=== PATIENT | female | born 1950 | race Caucasian/White ===

== ENCOUNTER 2023-03-24 12:45 | Outpatient (RCR) | payer OTHER, SELFPAY ==
--- NOTE | 2023-03-25 08:06 | PT.OPEX ---
[facility] [place] Outpatient Eval PT [facility] Outpatient Eval Start: 03/24/23 12:56 Freq: Status: Active Protocol: Document 03/24/23 12:57 AMS (Rec: 03/24/23 16:49 AMS [id number]) E-signed By Marcia Chan PT Physical Therapy Outpatient Evaluation Insurance Information Recert Due Date 06/17/23 Insurance Name Medicare B,[employer] Medical Diagnosis S/p left total knee replacement 04/01/23 Primary osteoarthritis of left knee Presence of left artificial knee joint Treating Diagnosis Aftercare following joint replacement Difficulty walking Left knee pain/stiffness Referring MD Manas Barrera Subjective Subjective Christy is a very pleasant 72- year-old young lady, here today with left knee pain. She states she would like a left knee replacement. She has been seeing Dr. Ponce at [address] [facility]. She had a cortisone injection 2-3 weeks ago. She has diabetes. Her problem list also states that she has MRSA. She has no recollection of this. She ambulates with a walker. She has had significant pain in the knee. Cortisone injection was not helpful. She takes Tylenol for her pain. She is on many diabetes medications including insulin. She does not recall what her most recent hemoglobin A1c was. - Bonny Neely, 12/11/22, confirmed by patient Pt reports to therapy 1 week prior to left knee replacement . She reports worsening left knee pain that started gradually 2 years ago and is localized to the whole knee. This is worse with prolonged standing, walking, squatting, etc and is very limiting for her. She ambulates at baseline with a 4WW due to back pain and gait imbalance; she is modified independent with IADLS (housekeeping comes 2x/ week). She is sedentary and does not exercise. Generally, she can stand and walk for a minute or so before her knee starts to bother her quite a bit. It is constant pain and does not relieve with rest. She has tried injections in the past, but these stopped being helpful after awhile. X- rays showed end stage tricompartmental osteoarthritis of her left knee. She is contemplating a [facility] facility stay after surgery. Please see pre- op note for full home set up. Lives on the 1st floor of an apartment complex with no stairs. Notably, she does not have anyone to assist her after surgery and does not want to ask any friends or family. She is adamant that she will not need help with anything after surgery other than her usual crnp who also does her laundry. She will be doing physical therapy at [facility] in [place] after surgery. She does not own a 2WW, but is open to using one after surgery. She does own a single point cane. Does not drive, takes a taxi everywhere. Her main goals with therapy are to return to walking longer distances with her 4WW. She denies falls in the last year, but states that is because she uses her 4WW; did have falls prior to using it and wears life alert around her neck. Pain Comments or 11/19, constant, whole knee Date of Last Physician Visit 01/20/23 Date of Surgery (If applicable) 04/01/23 Current Work Status Retired Occupation Retired nurse's aid Preferred Name Christy Precautions Treatment Precautions/Contraindications GERD (gastroesophageal reflux disease) Hypothyroid Type 2 diabetes mellitus Hypertension Elevated cholesterol Breathing problem Breast cancer hx, removed tumor in May 2022 on left side R total hip arthroplasty 2017 Depression Allergies Weight Bearing Status Weight Bear as Tolerated Therapy Limitations/Systems Review Affect,Cognition Objective Other/Pertinent Objective Knee ROM L 0-10-109 R 0-3-115 Hip ROM Did not assess this visit, poor tolerance to supine position Strength: Hip flexors: R 4/5, L 4/5 Knee extensors: R 4/5, L 4/5 Knee flexors: R 4/5 L 4/5 Gait/balance: Ambulates with 4WW, prefers positioning further away from her body, mildly antalgic on left. Balance: requires 4WW for safety with gait. Palpation/joint mobility: Mild tenderness to palpation over tibial tuberosity, medial joint line, posterior knee. Swelling/observation: No visible swelling appreciated. No bruising. Other: Bed mobility: utilizes her momentum for supine <> sit transitions, head of bed elevated on pillows per home set up. Left knee pain with transitions. Assessment Assessment/Impression Patient is a 71 year old female presenting for pre- operative visit prior to left total knee arthroplasty scheduled for 04/01/23. Upon assessment, patient demonstrates decreased knee ROM, decreased proximal hip force output, baseline gait imbalance with use of 4WW, and antalgic gait pattern. These impairments lead to difficulties with standing, walking, squatting, and transfers. She is modified independent with use of 4WW for all mobility at baseline. She does not have a caregiver lined up after surgery and is declining assistance at this time; utilizes taxi services for transport. Patient will be seen post operatively at [facility] to reassess impairments that will be addressed with skilled care. Christy would greatly benefit from skilled PT in order to progress strength, ROM, and ambulation post operatively in order to perform all household and work duties without significant difficulty or discomfort. Primary Functional Limitations standing, walking, squatting, transfers Plan of Care Rehabilitation Potential Good Physical Therapy Goals Goals: After pre-op visit: ? Patient will be independent with HEP ? Patient will verbalize knowledge of stair navigation and proper sequencing for community navigation ? Patient will have knowledge on home adaptations and use of assistive devices post operatively ? Patient will have knowledge of edema management ALL MET Coordination/Communication With Referral Source Treatment Plan/Direct Interventions Gait Training,Joint Mobilization,Manual Therapy, Neuromuscular Re-ed,Self-Care/ Home Management,Therapeutic Activities,Therapeutic Exercises Frequency/Duration 1x visit prior to surgery on . Patient scheduled to start outpatient PT s/p TKA on 04/03/23 at [facility] in [place]. Has HEP to start with pre-operatively. Patient Will Be Discharged From Therapy Completion of LTG(s), Independent w/HEP, Independently Progressing Evaluation Billing Untimed Code Treatment Minutes 15 Complexity Moderate Certification Information Initial Certification Date 03/24/23 Ending Certification Date 06/17/23 Provider Signature Shows Agreement With POC & Medical Necessity Physician Signature & Date Requested Please Sign/Date Here Physician Comment/Change : Physician NPI Number #
== END 2023-07-22 23:59 | disposition home or self-care (01) ==
PROVIDERS: PCP Family Medicine; Visit Provider Orthopaedic Surgery
DX: M17.12 Unilateral primary osteoarthritis, left knee (principal); Z96.652 Presence of left artificial knee joint; R26.2 Difficulty in walking, not elsewhere classified; M25.562 Pain in left knee; M25.662 Stiffness of left knee, not elsewhere classified; Z47.1 Aftercare following joint replacement surgery; Z51.89 Encounter for other specified aftercare
CPT/HCPCS: 97110; 97162

== ENCOUNTER 2023-04-01 07:32 | Inpatient (IN) | payer OTHER, SELFPAY ==
[2023-04-01] VITALS (25 sets, daily range): BP systolic 112–170; BP diastolic 46–99; PULSE 60–93; RESP 15–20; TEMP 35.4–36.8; O2SAT 93–98; BMI 34.6
--- OUTSIDE RECORDS SUMMARY | 2023-04-01 07:35 | XMS_ITS | Clinical Summary ---
Author Name Unknown Organization [employer] [facility] Address [place], [place] [address] Care Team Providers Care Receiving Coordinator Name Role Phone Ranjit Jennings MD Primary Care Provider [phone] Debbie Rivas RN Unavailable [phone] Cherry Schafer RN Unavailable [phone] Anel Mitchell RN Unavailable [facility] [place] Unavailable [phone] [facility] Un[facility] Alanis Fuchs MD Unavailable Beckie Stein VP PUBLISHER DEVELOPMENT Unavailable Allergies Active Allergy Reactions Criticality Noted Date Comments Cats (Fur, Dander, Saliva) Runny Nose Low 0 Cefprozil *Unknown Unknown 10/29/2007 Chlorpheniramine *Unknown Unknown 10/29/2007 Ziprasidone Seizures High 12/14/2007 Horse/Equine Containing Products *Unknown Unknown 11/06/2010 found on allergy testing Hydroxyzine *Unknown Unknown 10/29/2007 Iodine And Iodide Containing Products *Unknown Unknown 07/21/2019 Levofloxacin *Unknown Unknown 07/21/2019 Lisinopril Cough Low 04/09/2017 Wifppnjl-Eyxmbdzvhq-Rgucwtlfi *Unknown Unknown 2007 Unlisted Allergen (Include Detail In Comments) *Unknown Unknown 12/12/2010 dog Penicillins *Unknown Unknown 10/29/2007 Polymyxin B Sulfate-Hc *Unknown Unknown 07/21/2019 Sulfamethoxazole-Trimethoprim *Unknown Unknown 2009 Bupropion Seizures High 10/29/2007 Ziprasidone *Unknown Unknown 07/21/2019 Medications Medication Sig Dispensed Refills Start Date End Date Status durable medical equipment (DME)Indications:Ur inary incontinence, unspecified type Poise Pads Long Length Ultimate [place] use as directed. 100 Each 9 Active medication order composerIndications :Urinary incontinence, unspecified type Pull Up XL through Active Style use as directed. 100 Each 9 Active aspirin (ECOTRIN) 81 mg enteric coated tabletIndications:S tatus post reverse total shoulder replacement, unspecified laterality Take 1 Tablet (81 mg) by mouth once daily with a meal. 60 Tablet 0 1 Active magnesium citrate (CITRATE OF MAG)Indications:Chr onic constipation Take 300 mL by mouth once daily if needed for Constipation. 12 Bottle 3 1 Active CPAPIndications:MYRNA (obstructive sleep apnea) CPAP machine for home use at pressure 5-15 cmw, full face mask x1/3month with a full face cushion x1/mo 1 Each 11 1 Active fluticasone (50 mcg per actuation) nasal solution (FLONASE)Indication s:Allergic rhinitis, unspecified seasonality, unspecified trigger Use 2 spray(s) in each nostril once daily 48 g 3 2 Active docusate (COLACE) 100 mg capsuleIndications: S/P shoulder replacement, right Take 1 Capsule (100 mg) by mouth 2 times daily if needed for Constipation (Hold for loose stools). 100 Capsule 2 Active albuterol HFA (PRO-AIR; VENTOLIN; PROVENTIL) 90 mcg/actuation inhalerIndications: Cough, unspecified type Inhale 1-2 Puffs by mouth every 4 hours if needed (cough). 1 Each 0 3 Active albuterol (PROVENTIL) 0.083 % neb solutionIndications :COPD mixed type (HC) Inhale 3 mL (2.5 mg) via a nebulizer every 6 hours. 270 mL 3 3 Active Milk of Magnesia 400 mg/5 mL suspensionIndicatio ns:Ileus (HC) Take 30 mL by mouth once daily if needed for Constipation. 473 mL 0 3 Active aluminum-magnesium hydroxide-simethico ne (MAALOX PLUS; MYLANTA) 200-200-20 mg/5 mL suspensionIndicatio ns:Abdominal discomfort Take 15 mL by mouth 4 times daily if needed for GI Upset. 354 mL 0 3 Active Allergy Relief, cetirizine, 10 mg tabletIndications:N on-seasonal allergic rhinitis due to pollen Take 1 tablet by mouth once daily 90 Tablet 3 3 Active Blood-Glucose Meter (Pili PopTouch Ultra2 Meter)Indications:T ype 2 diabetes mellitus with stage 3b chronic kidney disease, without long-term current use of insulin (HC) Dispense glucose meter covered by the patient insurance. Test 1 times per day. 1 Each 0 3 Active blood sugar diagnostic (Blood Glucose Test) stripIndications:Ty pe 2 diabetes mellitus with stage 3b chronic kidney disease, without long-term current use of insulin (HC) Test 1 times per day. 100 Each 3 Active lancetsIndications: Type 2 diabetes mellitus with stage 3b chronic kidney disease, without long-term current use of insulin (HC) As directed. Test 1 times per day. 100 Each 3 Active ipratropium (ATROVENT) 0.02 % nebulizer solutionIndications :COPD mixed type (HC) Inhale 2.5 mL (0.5 mg) via a nebulizer 4 times daily. 900 mL 0 3 Active Insulin [place], Disposable, (Jonna Pen Needle) 32 gauge x 5/32Indications:Ty pe 2 diabetes mellitus with stage 3b chronic kidney disease, without long-term current use of insulin (HC) As directed. To use with insulin once daily 100 Each 5 3 Active dulaglutide (Trulicity) 1.5 mg/0.5 mL subcutaneous penIndications:Type 2 diabetes mellitus with stage 3b chronic kidney disease, without long-term current use of insulin (HC) Inject 1.5 mg subcutaneous once weekly. 2 mL 3 3 Active fluorometholone (FML) 0.1 % ophthalmic suspensionIndicatio ns:Conjunctival irritation,Dry eyes, bilateral One gtt qid OU x 2 weeks. Then, decrease to bid OU x 2 weeks. 4 mL 0 3 Active glyBURIDE (MICRONASE; DIABETA) 5 mg tabletIndications:T ype 2 diabetes mellitus with other specified complication, without long-term current use of insulin (HC) Take 1 Tablet (5 mg) by mouth once daily before a meal. 90 Tablet 1 3 Active fenofibrate 160 mg tabletIndications:H ypertriglyceridemia Take 1 Tablet (160 mg) by mouth once daily with a meal. 90 Tablet 1 3 Active losartan (COZAAR) 100 mg tabletIndications:H TN (hypertension) Take 1 Tablet (100 mg) by mouth once daily. 90 Tablet 1 3 Active potassium chloride (KLOR-CON) 20 mEq extended-release tablet (part/cryst)Indicat ions:Hypokalemia Take 1 Tablet (20 mEq) by mouth two times daily with meals. 180 Tablet 1 3 Active traZODone (DESYREL) 100 mg tabletIndications:I nsomnia, unspecified type Take 3 Tablets (300 mg) by mouth at bedtime. 270 Tablet 1 3 Active mirtazapine (REMERON) 15 mg tabletIndications:M oderate recurrent major depression (HC) Take 1 Tablet (15 mg) by mouth at bedtime. 30 Tablet 5 3 Active desvenlafaxine succinate (PRISTIQ) 100 mg extended release tabletIndications:M ajor depression in remission (HC) Take 1 Tablet (100 mg) by mouth every morning. 30 Tablet 5 3 Active polyethylene glycoL (MIRALAX) 17 gram/scoop powderIndications:I leus (HC) Mix 1 scoop (17 g) in liquid then take by mouth once daily. 510 g 3 3 Active Dexcom G6 Transmitter for continuous blood glucose monitor (CGM)Indications:Ty pe 2 diabetes mellitus with other specified complication, without long-term current use of insulin (HC) To be used to read blood sugars, follow credit reporter directions. 1 Each 4 3 Active mirabegron EXTENDED-release (MYRBETRIQ) 50 mg tabletIndications:O AB (overactive bladder) Take 1 Tablet (50 mg) by mouth once daily. 90 Tablet 0 3 Active artificial tears, peg 400 0.4%-propylene glycol 0.3%, (Systane, propylene glycoL,) ophthalmicIndicatio ns:Dry eye syndrome of both eyes Place 1 Drop into both eyes 4 times daily if needed for Dry Eyes. 10 mL 1 3 Active White Petrolatum-Mineral Oil (Systane Nighttime) 94-3 % ophthalmic ointmentIndications :Dry eye syndrome of both eyes Apply a small amount to the inside lower eyelids every night. 3.5 g 1 3 Active acetaminophen (acetaminophen Extra Strength) 500 mg tabletIndications:C hronic low back pain without sciatica, unspecified back pain laterality TAKE 2 TABLETS BY MOUTH THREE TIMES DAILY . DO NOT EXCEED 4000 MG OF ACETAMINOPHEN PER 24 HOURS 540 Tablet 3 3 Active ARIPiprazole (Abilify) 15 mg tabletIndications:D epression, unspecified depression type Take 1 Tablet (15 mg) by mouth once daily. 30 Tablet 5 3 Active levothyroxine (SYNTHROID) 75 mcg tabletIndications:H ypothyroidism, unspecified type Take 1 Tablet (75 mcg) by mouth before breakfast. 90 Tablet 0 3 Active NebulizerIndication s:Chronic obstructive pulmonary disease, unspecified COPD type (HC) Use the machine up to 4 times per day. Lifelong use 1 Each 0 3 Active nebulizer accessories misc miscIndications:Chr onic obstructive pulmonary disease, unspecified COPD type (HC) As directed. Nebulizer Tubing Kit 4 Each 0 3 Active nebulizer accessories kitIndications:Yarder Engineer obey obstructive pulmonary disease, unspecified COPD type (HC) For home use. Length of need: lifelong. Adult Mask 1 Kit 0 3 Active albuterol-ipratropi um (DUONEB) (2.5-0.5 mg) in 3 mL NEBULIZATION solutionIndications :Chronic obstructive pulmonary disease, unspecified COPD type (HC) Inhale 3 mL via a nebulizer every 6 hours if needed for Wheezing or Shortness Of Breath. 540 mL 3 3 Active nebulizer accessories kitIndications:Yarder Engineer obey obstructive pulmonary disease, unspecified COPD type (HC) For home use. Length of need: 99 1 Kit 0 3 Active NebulizerIndication s:Chronic obstructive pulmonary disease, unspecified COPD type (HC) Nebulizer. Frequency of use: daily; Medication: albuterol Length of need: 99 months 1 Each 0 3 Active atorvastatin (LIPITOR) 40 mg tabletIndications:U nsteady gait TAKE 1 TABLET BY MOUTH AT BEDTIME 90 Tablet 2 3 Active CPAPIndications:MYRNA (obstructive sleep apnea) full face mask x1/3month with a full face cushion x1/mo (extra small), lifetime length of need, daily use. 2 Each 11 4 Active desmopressin (DDAVP) 0.1 mg tabletIndications:N octuria TAKE 1 TABLET BY MOUTH ONCE DAILY AT BEDTIME 30 Tablet 5 4 Active Lantus Solostar U-100 Insulin 100 unit/mL (3 mL) penIndications:Type 2 diabetes mellitus with stage 3b chronic kidney disease, without long-term current use of insulin (HC) Inject 14 units subcutaneous before bedtime. Product desired: LANTUS SOLOSTAR 5 Each 0 4 Active Comp-Air Nebulizer Compressor USE DIRECTED 0 3 Active azithromycin (ZITHROMAX) 250 mg tabletIndications:A cute cough 2 tabs day 1; 1 tab days 2-5 6 Tablet 0 4 Active benzonatate (Tessalon Perles) 100 mg capsuleIndications: Acute cough Take 1 Capsule (100 mg) by mouth 3 times daily if needed for Cough. 21 Capsule 0 4 Active ondansetron (ZOFRAN ODT) 4 mg disintegrating tabletIndications:A cute cough Place 1 Tablet (4 mg) on the tongue every 8 hours if needed for Nausea/Vomiting. 30 Tablet 0 4 03/13/19 24 Discontinue d(*Patient states no longer taking) doxycycline 100 mg tabletIndications:A cute cough Take 1 Tablet (100 mg) by mouth two times daily for 10 days. 20 Tablet 0 4 03/09/19 24 benzonatate (Tessalon Perles) 100 mg capsuleIndications: Acute cough Take 1 Capsule (100 mg) by mouth 3 times daily if needed for Cough. 21 Capsule 0 4 03/13/19 24 Discontinue d(*Patient states no longer taking) Hospital, Clinic, or Other Facility Administered Medication Ordered Dose Route Frequency Start Date End Date Status triamcinolone acetonide (KENALOG) injection 40 mgIndications:Primary osteoarthritis of right knee 40 mg IArtic ONE TIME 03/10/2023 03/10/2023 Ended Active Problems Problem Noted Date Diagnosed Date Malignant neoplasm of upper- outer quadrant of left female breast 08/22/2022 Cancer Staging:Pathologic:Stage IA(pT2, pN0, cM0, G2, ER+, OK+, HER2-, Oncotype DX score: 13) - Signed by Alanis Fuchs MD on 09/25/2022 Status post left breast lumpectomy 08/22/2022 Class 2 obesity in adult 08/22/2022 Arthritis of knee 04/29/2022 Severe episode of recurrent major depressive disorder, without psychotic features 02/23/2022 Erythrocytosis 02/23/2022 Hyponatremia 02/23/2022 HTN (hypertension) 02/23/2022 Glenohumeral arthritis, left 09/21/2021 Type 2 diabetes mellitus wit h stage 3b chronic kidney disease, without long-term current use of insulin 05/17/2021 S/P reverse total shoulder arthroplasty, right 0 09/06/2020 Arthritis of right acromioclavicular joint 07/26 Arthritis of right glenohumeral joint 07/25/2020 Spondylolisthesis of lumbar region 06/08/2020 Lumbar disc bulge w impingement of L L3 & L4 Spinal stenosis of lumbar region 06/08/2020 Type 2 diabetes mellitus, wi thout long-term current use of insulin 05/16/2020 Prediabetes 04/27/2020 Dizziness 04/25/2020 Ulceration of vulva 07/20/2019 05/18/2022 Overview: Vaginitis panel and vaginal fungal culture negative. Applied Desitin regularly. Pathology from biopsy returned benign, showing acute and chronic inflammation and granulation tissue, negative for yeast. Pain has resolved and the lesion has resolved completely. No further follow up of this needed. Chronic renal disease, stage III 07/14/2018 Stage 3 chronic kidney disease 07/14/2018 0 07/05/2022 Right arm pain 01/27/2018 Right carpal tunnel syndrome 01/14/2018 Carpal tunnel syndrome, bilateral 12/24/2017 Carpal tunnel syndrome 12/24/2017 3 left wrist s/p carpal tunnel release on 11/03/2017 by Nevaeh Humphries MD 11/11/2017 Arthritis of left knee 08/31/2017 Hypoxia 08/24/2015 Hypokalemia 08/23/2015 Controlled substance agreement signed 01/20/2014 Overview: Tramadol, back pain, Arthritis, #60 to last 1 month or more Controlled substance agreement with Dr. Greer on 07/07/14 [facility] [place] [facility] drug therapy 4 05/18/2022 Overview: Tramadol, back pain, Arthritis, #60 to last 1 month or more Controlled substance agreement with Dr. Greer on 07/07/14 Hyperlipidemia LDL goal < 100 06/18/2012 Encounter for long-term (current) use of other m edications 09/17/2011 Overview: Controlled substance agreement signed 08/21; tapered off benzodiazepine due to overuse MRSA (methicillin resistant staph aureus) cultur e positive 01/10/2011 Carrier or suspected carrier of methicillin resistant Staphylococcus aureus 01/10/2011 05/18/2022 MYRNA 10/30/2005 AHI- 9.3 12/12/2010 Back pain 12/12/2010 Pain in back 12/12/2010 05/18/2022 Obstructive sleep apnea syndrome 12/12/2010 05/18/2022 Moderate recurrent major depression 10/31/2009 Overview: Had mental health business case analyst Karyn Mendoza [phone] Public health nursing no longer setting up meds per pt 12/2010 Polydipsia 07/27/2009 05/18/2022 Unspecified hypothyroidism 06/26/2009 Allergic rhinitis, cause unspecified 06/23/2009 Overview: Cat hair alternaria Rhinitis, allergic 06/23/2009 05/18/2022 Overview: Cat hair alternaria Urge incontinence of urine 06/08/200905/18 Nasal polyp, unspecified 05/25/2009 023 Sensorineural hearing loss, bilateral 10/14/2006 Onychomycosis 10/06/2006 05/18/2022 Asymptomatic coronary heart disease 03/17/2006 05/18/2022 Overview: CAD Asymptomatic Osteoarthritis Urinary incontinence Status post carpal tunnel release Resolved Problems Problem Noted Date Diagnosed Date Resolved Date Type 2 diabetes mellitus wit hout complication, without long-term current use of insulin 03/22/2016 05/28/2016 COPD exacerbation 08/23/2015 07/23/2017 Major depression in remission 07/21/2012 08/14/2014 Borderline personality disorder 02/25/2012 10/10/2015 Unspecified personality disorder 11/26/2010 02/21/2012 Overview: BPD and depressed personality traits [facility] CONTRACT 10/23/2009 012 Overview: This patient, PCP and Care Guide have signed a letter agreeing on a set of goals for diabetes, hypertension and/or CHF. Please look for [facility] Goal Contract in Chart Review/ Letters and support this effort. Please direct questions to Care Guide Rukhsana Shah Phone number [phone]. Unspecified constipation 06/15/2009 GERD (gastroesophageal reflux disease) 04/14/2008 02/21/2012 Overview: EGD 04/2008 reflux Major depressive disorder, r ecurrent episode, mild 12/14/2007 12/17/2010 Unspecified glaucoma 10/14/2006 018 Heart disease, unspecified 10/14/2006 1 04/07/2011 Diabetes mellitus 06/27/2014 Encounters Date Type Department Care Team Description 03/26/2023 1:25 PM RETIREMENT SPECIALIST Office Visit [facility] [address] [place] [phone] Charlotte Padilla DO URI 03/26/2023 Travel 03/20/2023 1:00 PM RETIREMENT SPECIALIST Office Visit [facility] [address] [facility] [address] [place] [address] Service, Cindy Sy MD No Show 03/20/2023 Telephone [facility] [address] [place] [address] Service, Cindy Sy MD Follow Up (Regarding Medication) 03/20/2023 Telephone [facility] [address] [place] [address] Service, Cindy Sy MD Medication Management 03/12/2023 1:10 PM RETIREMENT SPECIALIST Preop Visit [address] [place] [address] Ranjit Jennings MD Pre-Op Exam 03/12/2023 Orders Only [address] [place] [address] Ranjit Jennings MD 1 scan: (1-Ord) 03/12/2023 03/12/2023 Travel 03/10/2023 1:30 PM RETIREMENT SPECIALIST Office Visit [facility] [address] [place] [address] nOi Ponce MD Follow Up (bilateral knee) 03/10/2023 Travel 03/06/[address] [place] [address] Ranjit Jennings MD Form 02/27/2023 2:35 PM RETIREMENT SPECIALIST Ancillary Procedure [address] [place] [address] 02/27/2023 1:30 PM RETIREMENT SPECIALIST Office Visit [facility] [address] [place] [address], [place] [address] Charlotte Padilla DO Person Under Investigation (PUI) (Dry cough, nasal congestion, x 2-3 weeks, no COVID-19 test taken, denies sore throat, nausea, vomiting, and headaches, Tylenol and Mucinex with no relief of symptoms, no OTC meds today ) 02/27/2023 Travel 02/19/2023 Telephone [facility] [address] [address] Cindy Donohue MD Prior Authorization (desvenlafaxine succinate (PRISTIQ) 100 mg extended release tablet - APPROVED 02/20/2023-02/19/2023) 02/19/[address] [phone] Ranjit Jennings MD Refill Request (lantus solostar pen inj) 02/14/[address] [phone] Ranjit Jennings MD Form 02/14/[address] [phone] Ranjit Jennings MD Refill Request (Desmopressin) 02/14/[address] [phone] Noel Christy MD Results 02/13/2023 3:30 PM RETIREMENT SPECIALIST Office Visit [address] [phone] Noel Christy MD Urinary Problem 02/13/[address] [phone] Cindy Baeza AuD Hearing Aid (312 batteries) 02/13/2023 Travel 02/11/[address] [phone] Ranjit Jennings MD order 02/06/[address] [phone] Cindy Vale, LIZ Focused Care Management 01/23/[address] [phone] Ranjit Jennings MD Refill Request (Atorvastatin) 01/23/2023 Transcribe Orders [facility] [address] [address] Manas Barrera MD 01/07/2023 1:40 PM RETIREMENT SPECIALIST Office Visit [facility] [address] [phone] Oni Ponce MD Follow Up (left knee/ surgical discussion ) 01/07/2023 Travel 01/05/2023 Orders Only [address] [phone] Beckie Liang MD <No scans attached> 01/04/[address] [phone] Ranjit Jennings MD Refill Request (Nebulizer, Neb Mask, Neb Tubing Kit, DuoNeb Solution ) 01/04/[address] [phone] Ranjit Jennings MD Error-please disregard 01/04/[address] [phone] Ranjit Jennings MD Refill Request (Desmopressin) 01/03/2023 2:50 PM RETIREMENT SPECIALIST Office Visit [address] [phone] Ranjit Jennings MD Diabetes (Currently feels that she has a cold going on 2 weeks or so); Immunization/Injecti on 01/03/2023 Travel from Last 3 Months Immunizations Name Administration Dates Next Due COVID-19 Vaccine Spikevax (M oderna 50mcg/0.5mL) 12YO+ [id number] Formula PF 01/03/2023 COVID-19 vaccine ([employer] NTech 30mcg/0.3mL) 12YO+ PEMA-SUCROSE PF, MDV 09/05/2021 COVID-19 vaccine ([employer] NT[employer] 30mcg/0.3mL) PF, MDV 01/01/2021,05/09/2020,04/14/2020 Influenza Virus, Unspecified 11/01/2019 Influenza, High-dose Inactivated 10/29/2015 Influenza, High-dose Quadriv alent Inactivated 11/27/2022,11/16/2020 Influenza, IIV3 (Age 6-35 mos) 11/01/2019 Influenza, IIV3 (Age >=3 years) 11/01/19 15,11/17/2012,10/28/2011,2010 Influenza, IIV4 10/17/2017,12/02/2013 Influenza, Inactivated AIIV4 (Age 65+ Years) Preserv Free 10/22/2021,10/25/2019 Influenza, Inactivated IIV3 (Age 65+ Years) Preserv Free 10/27/2018,11/25/2016 Pneumococcal Poly,23-Valent (Pneumovax) 07/23/2017,04/24/2006 Pneumococcal conj 13-Valent (Prevnar 13) 11/17/2015 Td (Age >=7 Years) 08/11/1998 Tdap 01/03/2012,05/19/2008,08/11/1998 Zoster (Shingrix-RZV, recombinant) 04/06/2019, Zoster (Zostavax-ZVL, live) 04/10/2015 Family History Medical History Relation Name Comments Arthritis Brother 2 Heart Disease Brother 3 quad bipass Hyperlipidemia Brother 4 Good Health Daughter Arthritis Father No Known Problems Maternal Aunt No Known Problems Maternal Grandfather No Known Problems Maternal Grandmother No Known Problems Maternal Uncle Arthritis Mother Diabetes Mother Seizures Mother epilepcy Thyroid Disease Mother No Known Problems Paternal Aunt No Known Problems Paternal Grandfather No Known Problems Paternal Grandmother No Known Problems Paternal Uncle Arthritis Sister 2 Genetic Sister 3 Heart Disease Sister 4 CHF Heart Disease Sister 5 MO Hyperlipidemia Sister 6 Psychiatric illness Sister 7 Good Health Son Anesthesia Problem No Family History Clotting disorder No Family History Relation Name Status Comments Brother 1 Alive Brother 2 Brother 3 Brother 4 Daughter Alive Father (Age 65) [place] Maternal Aunt Maternal Grandfather Maternal Grandmother Maternal Uncle Mother (Age 70s) hemachrom atosis Paternal Aunt Paternal Grandfather Paternal Grandmother Paternal Uncle Sister 1 Alive x3 Sister 2 Sister 3 Sister 4 Sister 5 Sister 6 Sister 7 Son Alive Social History Tobacco Use Types Packs/Day Years Used Date Smoking Tobacco: Former Cigarettes 5 0 02/10/2001 - 02/10/2006 Smokeless Tobacco: Never Tobacco Cessation:Counseling Given: Not Answered Alcohol Use Standard Drinks/Week Comments Not Currently 0 (1 standard drink = 0.6 oz pur e alcohol) PHQ-2 Answer Date Recorded PHQ-2 TOTAL SCORE 4 09/19/2022 Social Connections Answer Date Recorded Frequency of Communication with Friends and Fami ly 0 07/05/2022 Alcohol Use Answer Date Recorded How often do you have a drink containing alcohol ? 0 02/22/2022 How many drinks containing a lcohol do you have on a typical day when you are drinking? 0 02/22/2022 How often do you have five or more drinks on one occasion? 0 02/22/2022 Financial Resource Strain Answer Date R ecorded Difficulty of Paying Living Expenses 3 07/05/2022 Difficulty of Paying Living Expenses Not on file 07/05/2022 Food Insecurity Answer Date Recorded Worried About Running Out of Food in the Last Ye ar 1 07/05/2022 Transportation Needs Answer Date Record ed Lack of Transportation (Medical) 1 07/05/2022 Housing Stability Answer Date Recorded Unable to Pay for Housing in the Last Year 1 07/05/2022 Sex and Gender Information Value Date Recorded Sex Assigned at Not on file Gender Identity Not on file Sexual Orientation Not on file Obstetrics History Last Filed Vital Signs Vital Sign Reading Time Taken Comments Blood Pressure 159/79 03/26/2023 3:11 PM RETIREMENT SPECIALIST Pulse 90 03/26/2023 3:11 PM RETIREMENT SPECIALIST Temperature 36.4 ??C (97.6 ??F) 03/26/2023 3:11 PM CS T Respiratory Rate 20 03/26/2023 4:18 PM RETIREMENT SPECIALIST Oxygen Saturation 96% 03/26/2023 3:11 PM RETIREMENT SPECIALIST Inhaled Oxygen Concentration - - Weight 81.2 kg (179 lb) 03/26/2023 3:11 PM RETIREMENT SPECIALIST Height 152.5 cm (5' 0.04) 03/12/2023 1:02 PM CS T Body Mass Index 34.91 03/12/2023 1:02 PM RETIREMENT SPECIALIST Plan of Treatment Upcoming Encounters Date Type Department Care Team (Late st Contact Info) Description 04/03/2023 1:15 PM RETIREMENT SPECIALIST Appointment [facility] [address] [place] [address] Katelyn Liu, PT [address] [place] [address] 04/10/2023 2:00 PM RETIREMENT SPECIALIST Appointment [facility] [address] [place] [address] Katelyn Liu, PT [address] [place] [address] 04/17/2023 2:00 PM RETIREMENT SPECIALIST Appointment [facility] [address] [place] [address] Katelyn Liu, PT [address] [place] [address] 05/15/2023 3:30 PM CDT Office Visit [facility] [address] [place] [address] Noel Christy MD [address] [place] [address] Health Maintenance Due Date Last Done Comments Fecal testing non-DNA (FIT,FOBT,iFOBT) for age 45-75 09/24/2012 09/25/2011 Tetanus booster 01/02/2022 01/03/2012, 03/2010 (Completed outside of [facility]), 05/19/2008, Additional history exists Medicare Wellness for age 65+ 01/16/2023, 12/24/2019, 08/19/2017 COVID-19 vaccine series (2022- season) 2023 01/03/2023, 09/05/2021, 01/01/2021, Additional history exists Mammogram for age 45-75 06/20/2023 06/19/2022 Depression screening for age 12+ 09/24/2023 09/23/2022, 09/23/2022, 09/23/2022, Additional history exists BMI (ht and wt on same day) for age 18+ 03/12/2024 03/12/2023, 12/09/2022, 10/09/2022, Additional history exists Lipids for age 45-75 02/24/2027 02/24/2022, 02/18/2022, 05/25/2021, Additional history exists Tdap Completed 01/03/2012, 10/2008, 08/11/1998 Hepatitis C screening for ag e 18-79 Completed 04/18/2014 DEXA/DXA scan for age 65+ Completed 12/08/2015 Pneumococcal series for age 65+ Completed 07/23/2017, 11/17/2015, 04/24/2006 Zoster (shingles) series for age 50+ Completed 04/06/2019, 10/27/2018, 04/10/2015 Influenza for age 65+ Completed 11/27/2022 , 10/22/2021, 11/16/2020, Additional history exists Goals Goal Patient Goal Type Associated Problems Recent Progress Patient-Stated? Author BLOOD PRESSURE - MAINTAINS BP less than 140/90 Blood Pressure No Luis Nuñez MD Medical Devices Implanted Type Area Statistical Financial Analyst Device Identifier Shelf Expiration Date Model / Serial / Lot Reunion Rsa Center Screw Implanted:Qty: 1 on 07/25/2020 by Oni Ponce MD at [facility] Right: Shoulder [employer] 08/29/2024 [id number] / / [id number] Reunion [employer]sa Glenoid Baseplate Implanted:Qty: 1 on 07/25/2020 by Oni Ponce MD at [facility] Right: Shoulder [employer] 02/14/2025 [id number] / / [id number] Reunion [employer]sa Peripheral Screw Implanted:Qty: 1 on 07/25/2020 by Oni Ponce MD at [facility] Right: Shoulder [employer] 03/24/2021 [id number] / / [id number] Re[employer]sa Peripheral Screw Implanted:Qty: 1 on 07/25/2020 by Oni Ponce MD at [facility] Right: Shoulder [employer] 10/18/2024 [id number] / / [id number] Re[employer]sa Peripheral Screw Implanted:Qty: 1 on 07/25/2020 by Oni Ponce MD at [facility] Right: Shoulder [employer] 11/06/2024 [id number] / / [id number] [employer] Cocentric Glenosphere Implanted:Qty: 1 on 07/25/2020 by Oni Ponce MD at [facility] Right: Shoulder [employer] 03/13/2025 5573-C-32 02 / / [id number] Reunion S Press-Fit Humeral Stem Implanted:Qty: 1 on 07/25/2020 by Oni Ponce MD at [facility] Right: Shoulder [employer] 09/01/2023 5567-P-30 09 / / [id number] Reunion Rsa [id number] Implanted:Qty: 1 on 07/25/2020 by Oni Ponce MD at [facility] Right: Shoulder [employer] 09/09/2024 5571-S-32 06 / / [id number] Reunion [employer]sa Humeral Cup Implanted:Qty: 1 on 07/25/2020 by Oni Ponce MD at [facility] Right: Shoulder [employer] 03/23/2025 [id number] / / [id number] Procedures Procedure Name Priority Date/Time Associated Diagnosis Comments CBC WITH AUTO DIFFERENTIAL Routine 03/12/2023 1:32 PM RETIREMENT SPECIALIST Preop examination Chronic pain of left knee BASIC METABOLIC PANEL Routine 03/12/2023 1:32 PM RETIREMENT SPECIALIST Preop examination Chronic pain of left knee CBC WITH AUTO DIFFERENTIAL Routine 03/12/2023 1:32 PM RETIREMENT SPECIALIST Preop examination Chronic pain of left knee EKG 12 LEAD Routine 03/12/2023 12:00 AM RETIREMENT SPECIALIST Preop examination Chronic pain of left knee XR CHEST 2 VIEWS PA AND LATERAL STAT 02/27/2023 2:39 PM RETIREMENT SPECIALIST Acute cough UA W/ SEDIMENT EXAM REFLEXED PER CRITERIA Routine 02/13/2023 2:45 PM RETIREMENT SPECIALIST OAB (overactive bladder) BASIC METABOLIC PANEL Routine 01/03/2023 2:53 PM RETIREMENT SPECIALIST Hypokalemia Type 2 diabetes mellitus with stage 3b chronic kidney disease, without long-term current use of insulin (HC) HEMOGLOBIN A1C Routine 01/03/2023 2:53 PM RETIREMENT SPECIALIST Type 2 diabetes mellitus with stage 3b chronic kidney disease, without long-term current use of insulin (HC) T4,FREE Routine 01/03/2023 2:53 PM RETIREMENT SPECIALIST Hypothyroidism, unspecified type TSH Routine 01/03/2023 2:53 PM RETIREMENT SPECIALIST Hypothyroidism, unspecified type from Last 3 Months Results * (ABNORMAL) CBC WITH AUTO DIFFERENTIAL (03/12/2023 1:32 PM RETIREMENT SPECIALIST) WHITE BLOOD COUNT 10.9 4.5 - 11.0 thou/cu mm 03/12/2023 1:48 PM RETIREMENT SPECIALIST [facility] RED BLOOD COUNT 5.30(H) 4.00 - 5.20 mil/cu mm 03/12/2023 1:48 PM RETIREMENT SPECIALIST [facility] HEMOGLOBIN 15.3 12.0 - 16.0 g/dL 03/12/2023 1:48 PM RETIREMENT SPECIALIST [facility] HEMATOCRIT 46.7 33.0 - 51.0 % 03/12/2023 1:[address] [facility] MCV 88 80 - 100 fL 03/12/2023 1:[address] [facility] MCH 28.9 26.0 - 34.0 pg 03/12/2023 1:[address] [facility] MCHC 32.8 32.0 - 36.0 g/dL 03/12/2023 1:[address] [facility] RDW 12.9 11.5 - 15.5 % 03/12/2023 1:[address] [facility] PLATELET COUNT 284 140 - 440 thou/cu mm 03/12/2023 1:[address] [facility] MPV 10.6 6.5 - 11.0 fL 03/12/2023 1:[address] [facility] % NEUT 79.5 % 03/12/2023 1:[address] [facility] % LYMPH 12.7 % 03/12/2023 1:[address] [facility] % MONO 7.5 % 03/12/2023 1:[address] [facility] % EOS 0.1 % 03/12/2023 1:[address] [facility] % BASO 0.2 % 03/12/2023 1:[address] [facility] ABSOLUTE NEUTROPHILS 8.7(H) 1.7 - 7.0 thou/cu mm 03/12/2023 1:[address] [facility] ABSOLUTE LYMPHOCYTES 1.4 0.9 - 2.9 thou/cu mm 03/12/2023 1:[address] [facility] ABSOLUTE MONOCYTES 0.8 <0.9 thou/cu mm 03/12/2023 1:[address] [facility] ABSOLUTE EOSINOPHILS 0.0 <0.5 thou/cu mm 03/12/2023 1:[address] [facility] ABSOLUTE BASOPHILS 0.0 <0.3 thou/cu mm 03/12/2023 1:[address] [facility] Blood BLOOD SPECIMEN / Unknown Venipuncture / Unknown 03/12/2023 1:32 PM RETIREMENT SPECIALIST 03/12/2023 1:34 PM RETIREMENT SPECIALIST Ranjit Jennings MD HEMATOLOGY [facility] [address] [place] [address] * (ABNORMAL) BASIC METABOLIC PANEL (03/12/2023 1:32 PM RETIREMENT SPECIALIST) Only the most recent of2 resultswithin the time period is included. SODIUM 138 136 - 145 mmol/L 03/12/2023 2:[address] [facility] POTASSIUM 4.3 3.5 - 5.1 mmol/L 03/12/2023 2:[address] [facility] CHLORIDE 100 98 - 107 mmol/L 03/12/2023 2:[address] [facility] CO2,TOTAL 28 22 - 29 mmol/L 03/12/2023 2:[address] [facility] ANION GAP 10 5 - 18 03/12/2023 2:[address] [facility] GLUCOSE 223(H) 70 - 99 mg/dL 03/12/2023 2:[address] [facility] CALCIUM 9.6 8.8 - 10.2 mg/dL 03/12/2023 2:[address] [facility] BUN 29(H) 8 - 23 mg/dL 03/12/2023 2:[address] [facility] CREATININE 1.28(H) 0.50 - 0.90 mg/dL 03/12/2023 2:[address] [facility] BUN/CREAT RATIO 23(H) 10 - 20 2:[address] [facility] eGFR 45(L) >90 mL/min/1.7 3m2 03/12/2023 2:[address] [facility] Comment:As of 2021, eG FR is calculated by the CKD-EPI creatinine equation without race adjustment. ??eGFR can be influenced by muscle mass, exercise, and diet. ??The reported eGFR is an estimation only and is only applicable if the renal function is stable. Blood BLOOD SPECIMEN / Unknown Venipuncture / Unknown 03/12/2023 1:32 PM RETIREMENT SPECIALIST 03/12/2023 1:34 PM RETIREMENT SPECIALIST Ranjit Jennings MD CHEMISTRY [facility] [address] [place] [address] * EKG 12 LEAD (03/12/2023 12:00 AM RETIREMENT SPECIALIST) Ranjit Jennings MD EKG ORD * XR CHEST 2 VIEWS PA AND LATERAL (02/27/2023 2:39 PM RETIREMENT SPECIALIST) Anatomical Region Laterality Modality CHEST, THORAX, Lung, HEART Compu ramos Radiography 02/27/2023 3:01 PM RETIREMENT SPECIALIST Impressions 02/27/2023 3:01 PM RETIREMENT SPECIALIST No acute findings and no significant changes from the prior exam. Dictated by Pilar Amador MD @ 02/27/2023 3:01:51 PM (Electronically Signed) Narrative 02/27/2023 3:01 PM RETIREMENT SPECIALIST For Patients: ??As a result of the Cures Act, medical imaging exams and procedure reports are released immediately into your electronic medical record. ??You may view this report before your referring provider. ??If you have questions, please contact your health care provider. INDICATION: Acute cough. TECHNIQUE: Chest 2 views. COMPARISON: Radiographs from 08/05/2022. FINDINGS: Normal cardiomediastinal silhouette and pulmonary vasculature. Atherosclerotic aortic calcifications. Lungs are well inflated and clear. No focal consolidation, pleural effusion, or pneumothorax. No acute osseous abnormality. Partially visualized right reverse shoulder prosthesis. Chronic widening of the right acromioclavicular joint. Severe left glenohumeral osteoarthritis. Procedure Note Pilar Amador DO - 02/27/2023 For Patients: As a result of the Cures Act, medical imagingexams and procedure reports are released immediately into your electronicmedical record. You may view this report before your referring provider.If you have questions, please contact your health care provider. INDICATION: Acute cough. TECHNIQUE: Chest 2 views. COMPARISON: Radiographs from 08/05/2022. FINDINGS: Normal cardiomediastinal silhouette and pulmonary vasculature.Atherosclerotic aortic calcifications. Lungs are well inflated and clear.No focal consolidation, pleural effusion, or pneumothorax. No acuteosseous abnormality. Partially visualized right reverse shoulderprosthesis. Chronic widening of the right acromioclavicular joint. Severeleft glenohumeral osteoarthritis. IMPRESSION: No acute findings and no significant changes from the prior exam. Dictated by Pilar Amador MD @ 02/27/2023 3:01:51 PM (Electronically Signed) Charlotte Padilla DO GENERAL IMAGING * (ABNORMAL) UA W/ SEDIMENT EXAM REFLEXED PER CRITERIA (02/13/2023 2:45 PM RETIREMENT SPECIALIST) COLOR Yellow Yellow Color 02/13/2023 3:[address] [facility] CLARITY Clear Clear Clarity 02/13/2023 3:[address] [facility] SPECIFIC GRAVITY,URINE 1.020 1.010, 1.015, 1.020, 1.025 02/13/2023 3:[address] [facility] PH,URINE 6.0 6.0, 7.0, 8.0, 5.5, 6.5, 7.5, 8.5 02/13/2023 3:[address] [facility] UROBILINOGEN, QUALITATIVE Normal Normal EU/dl 02/13/2023 3:[address] [facility] PROTEIN, URINE Negative Negative mg/dL 02/13/2023 3:[address] [facility] GLUCOSE, URINE 500(A) Negative mg/dL 02/13/2023 3:[address] [facility] KETONES,URINE Negative Negative mg/dL 02/13/2023 3:[address] [facility] BILIRUBIN,URI NE Negative Negative 02/13/2023 3:[address] [facility] OCCULT BLOOD,URINE Negative Negative 02/13/2023 3:[address] [facility] NITRITE Negative Negative 02/13/2023 3:[address] [facility] LEUKOCYTE ESTERASE Negative Negative 02/13/2023 3:53 PM RETIREMENT SPECIALIST [facility] Urine URINE SPECIMEN / Unknown Non-Blood / Unknown 02/13/2023 2:45 PM RETIREMENT SPECIALIST 02/13/2023 3:37 PM RETIREMENT SPECIALIST Noel Christy MD URINE [facility] [address] [place] [address] * (ABNORMAL) TSH (01/03/2023 2:53 PM RETIREMENT SPECIALIST) TSH 5.44(H) 0.27 - 4.20 uIU/mL 01/03/2023 3:29 PM RETIREMENT SPECIALIST [facility] Blood BLOOD SPECIMEN / Unknown Venipuncture / Unknown 01/03/2023 2:53 PM RETIREMENT SPECIALIST 01/03/2023 2:56 PM RETIREMENT SPECIALIST Narrative [facility] - 01/03/2023 3:29 PM RETIREMENT SPECIALIST In Adults, TSH values between 5.00 and 10.00 uIU/ml do not necessarily indicate the presence of Hypothyroidism. Correlation with clinical findings such as presence of goiter and/or Thyroperoxidase (TPO) Antibody may be helpful. For more information please refer to CHRISTA 2004; 291: 228-238. Ranjit Jennings MD CHEMISTRY Performing Organization Address City/[facility]/ZIP Co de Phone Number [facility] [address] [place] [address] * T4,FREE (01/03/2023 2:53 PM RETIREMENT SPECIALIST) T4,FREE 1.48 0.93 - 1.70 ng/dL 01/04/2023 1:24 PM RETIREMENT SPECIALIST [facility] Blood BLOOD SPECIMEN / Unknown Venipuncture / Unknown 01/03/2023 2:53 PM RETIREMENT SPECIALIST 01/03/2023 2:56 PM RETIREMENT SPECIALIST Ranjit Jennings MD CHEMISTRY [facility] [address] [place] [address], * (ABNORMAL) HEMOGLOBIN A1C MONITORING (POCT) (01/03/2023 2:53 PM RETIREMENT SPECIALIST) HEMOGLOBIN A1C MONITORING (POCT) 8.8(H) <=6.4 % 01/03/2023 3:07 PM RETIREMENT SPECIALIST [facility] Blood BLOOD SPECIMEN / Unknown Venipuncture / Unknown 01/03/2023 2:53 PM RETIREMENT SPECIALIST 01/03/2023 2:56 PM RETIREMENT SPECIALIST Narrative [facility] - 01/03/2023 3:07 PM RETIREMENT SPECIALIST ? (<=6.9%) ? Indicates good control ? (7.0% to 7.9%) ? Indicates fair control ? (>=8.0%) ? Indicates poor control ?? NOTE: ??These thresholds are guidelines and ?individual targets may vary. Falsely low levels may be seen with: Recent Transfusion, Recent Significant Blood Loss, Hemolytic Diseases, or Falsely elevated levels may be seen with: Untreated Anemias, Splenectomy ? Ranjit Jennings MD CHEMISTRY [facility] [address] [place] [address] from Last 3 Months Additional Health Concerns Infection Onset Date Last Indicated MRSA Clearance Comment:Infection Control Note: Hx of MRSA, surveillance criteria met, no need for further testing or isolation precautions. Do not delete or resolve the Infection Flag. 02/22/2022 02/22/2022 Advance Directives Documents on File Type Date Recorded Patient Turbine Inspector Expl anation Healthcare Directive 08/26/2016 1:49 PM 08/12/16 Healthcare Directive 09/04/2015 4:29 PM EX PIRED, 08/12/16 Latest Code Status on File Code Status Date Activated Date Inactivated Comments Full Code 08/22/2022 6:35 AM 08/23/2022 4:32 PM Question Answer Comments Code Status Discussion: Reviewed Preferences Code Status History Code Status Date Activated Date Inactivated Comments Full Code 02/22/2022 7:01 PM 03/01/2022 2:08 PM Question Answer Comments Code Status Discussion: Not Discussed Full Code 07/25/2020 5:54 AM 07/26/2020 12:12 PM Question Answer Comments Code Status Discussion: Discussed Full Code 04/25/2020 10:33 PM 04/26/2020 8:38 PM Question Answer Comments Code Status Discussion: Discussed Full Code 11/03/2017 6:40 AM 11/03/2017 12:19 PM Question Answer Comments Code Status Discussion: Discussed Care Teams Receiving Coordinator Relationship Specialty Start Date End Date Ranjit Jennings MD [address] [facility] [address] [place] [address] PCP - General Family Practice 10/16/16 Debbie Rivas RN [phone] [address] Cnc Lathe Programmer - [facility] Registered Nurse 11/10/20 Cherry Schafer, RN [address] [facility] [address] [place], [place] [phone] Cnc Lathe Programmer - [facility] Registered Nurse 11/10/20 Anel Mitchell, RN [address] [facility] [address] [place] [address] Cnc Lathe Programmer - [facility] Registered Nurse 11/10/20 [facility] [address] [place] [address] 04/16/22 Crystal Grewal, LIZ [address] [place] [address] Nurse Navigator - Oncology Registered Nurse 07/18/22 Alanis Fuchs MD [address] [place] [address] Medical Oncologist Oncology 09/24/22 Beckie Stein NP [address] [place] [address] Nurse Practitioner Oncology 09/24/22
--- OUTSIDE RECORDS SUMMARY | 2023-04-01 07:35 | XMS_ITS | Continuity of Care Document ---
Author Name Unknown Organization TELMA Zhao Address [address] [place] [address] Phone Care Team Providers Care Automobile Mechanic Helper Name Role Phone Ana Laura Charlotte HARRIS Unavailable Unavailable Allergies, Adverse Reactions, Alerts Substance Reaction Status Criticality Penicillins Active No Information povidone-iodine Active No Informati on lisinopril Active No Information POLYMYXIN B SULFATE Active No Infor mation PENICILLIN Active No Information bacitracin Active No Information levofloxacin Active No Information Active No Information hydroxyzine Active No Information chlorthenoxazine Active No Informat ion cat dander Active No Information BUPROPION HCL Active No Information ziprasidone Active No Information Medications Medication Instructions Dosage Effective Dates (start - stop) Status Comments albuterol sulfate HFA 90 mcg/actuation aerosol inhaler inhale 2 puff by inhalation route every 4 - 6 hours as needed 180 MCG - Active aripiprazole 10 mg tablet take 1 tablet by oral route every day 10 MG - Active aspirin 81 mg chewable tablet chew 2 tablet by oral route every day 162 MG - Active Benadryl 25 mg capsule take 1 capsule by oral route every 4 - 6 hours as needed 25 MG - Active cetirizine 10 mg tablet take 1 tablet by oral route every day 10 MG - Active docusate sodium 250 mg capsule take 1 capsule by oral route 2 times every day at bedtime as needed 250 MG - Active fenofibrate 50 mg capsule take 1 capsule by oral route every day with a meal 50 MG - Active Flonase Allergy Relief 50 mcg/actuation nasal spray,suspension spray 1 - 2 spray by intranasal route every day in each nostril as needed 50-100 MCG - Active glyburide 5 mg tablet take 1 tablet by oral route every day before breakfast 5 MG - Active losartan 100 mg tablet take 1 tablet by oral route every day 100 MG - Active magnesium citrate 100 mg capsule - Active potassium chloride ER 20 mEq tablet,extended release take 1 tablet by oral route every day with food 20 MEQ - Active Pristiq 25 mg tablet,extended release take 2 tablet by oral route every day at approximately the same time each day 50 MG - Active trazodone 100 mg tablet take 2 tablet by oral route every day at bedtime 200 MG - Active Tylenol 325 mg tablet take 1 tablet by oral route every 4 hours as needed 325 MG - Active Procedures Procedure Date Inj Anes Epidur; Lumb/sac 1 Le Inj Anes Epidur; Lumb/sac 1 Le Inj Anes Epidur; Lumb/sac 1 Le CC Control For Rem/Void Of Mutually Excl usive Proc Psychiatric Diagnostic Evaluation Teleph one Only Est Pt Eval 25 Min Telehealth Therapeutic Exercise Est Pt Eval 25 Min Manual Therapy Therapeutic Exercise Inj Anes Epidur; Lumb/sac 1 Le Inj Anes Epidur; Lumb/sac 1 Le Change Control for Modifier(s) Inj Anes Epidur; Lumb/sac 1 Le Therapeutic Exercise PT Eval - Low Complexity Est Pt Eval 25 Min New Pt Eval 45 Min Advance Directives Directive Yes / No Effective Date File Name No Information Encounters Encounter Description Practice Location Reason(s) For Visit Diagnoses Date Provider Providers Copied on Encounter YANI Zhao, [address], [place], [place], [id number], [place] tel:[phone] [facility] No Information 3 Ana Laura Porter. [address], [place], [address], [place]. tel:[phone] Referring Provider: John Glasgow, [address], [place], [address]. tel:[phone] [facility], [address], [place], [place], [id number], [place] tel:[phone] [facility] No Information 2 Trino Lopez. [address], [place], [address], [place]. tel:[phone] Referring Provider: John Glasgow, [address], [place], [address]. tel:[phone] [facility], [address], [place], [address], [place] tel:[phone] [facility] back pain (chief complaint) Radiculopathy, lumbar regionRadiculopath y, lumbar region 2 [facility]. [address], [place], [place], [address], [place]. tel:[phone] Referring Provider: John Glasgow, [address], [facility] [place], [address]. tel:[phone] Psychiatric Diagnostic Evaluation Telephone Only Pavel [facility], [address], [place], [place], [id number], [place] tel:[phone] [facility] Pain disorder with related psychological factorsMajor depressive disorder, recurrent, mild 2 Antwon Washington. [address], [place], [id number], [place]. tel:[phone] Referring Provider: Ranjit Claudio, [address] [place] [address], [address]. tel:[phone] Est Pt Eval 25 Min Telehealth Pavel [facility], [address], [place], [place], [id number], [place] tel:[phone] [facility] back pain (chief complaint) Body mass index (BMI) 35.0-35.9, adultSpinal stenosis, lumbar region with neurogenic claudicationOther intervertebral disc degeneration, lumbar region 2 She Qiying. [address], [address], [place], [address], [place]. tel:[phone] Referring Provider: Ranjit Claudio, [address] [place] [address], [address]. tel:[phone] Pavel, [facility], [address], [place], [place], [id number], [place] tel:[phone] [facility] Low back pain, unspecifiedSpinal stenosis, lumbar region with neurogenic claudication 2 Skyler Corrigan. [address], [place], [place], [address], [place]. tel:[phone] Referring Provider: Ranjit Claudio, [address] [place] [address], [address]. tel:[phone] Est Pt Eval 25 Min Pavel, [facility], [address], [place], [place], [address], [place] tel:[phone] [facility] back pain (chief complaint) Body mass index (BMI) 35.0-35.9, adultSpinal stenosis, lumbar region with neurogenic claudicationOther intervertebral disc degeneration, lumbar region 2 She Qiying. [address], [address], [place], [address], [place]. tel:[phone] Referring Provider: Ranjit Claudio, [address] [place] [address], [address]. tel:[phone] [facility], [facility], [address], [place], [place], [id number], [place] tel:[phone] [facility] Low back pain, unspecifiedSpinal stenosis, lumbar region with neurogenic claudication 2 Quinton Tyson. [address], [place], [address], [place]. tel:[phone] Referring Provider: Ranjit Jennings MD [place], [address] [place] [address], [place], [address]. tel:[phone] [facility], [address], [place], [address], [place] tel:[phone] [facility] back pain (chief complaint) Radiculopathy, lumbar regionRadiculopath y, lumbar region [address] [facility]. [address], [place], [place], [id number], [place]. tel:[phone] Referring Provider: John Glasgow, [address], [place], [address]. tel:[phone] [facility], [address], [place], [place], [id number], [place] tel:[phone] [facility] Linda No Information 2 Trino Lopez. [address], [place], [address], [place]. tel:[phone] Referring Provider: John Glasgow, [address], [place], [address]. tel:[phone] [facility], [address], [place], [place], [id number], [place] tel:[phone] [facility] Low back pain, unspecifiedSpinal stenosis, lumbar region with neurogenic claudication 2 Ana Laura Porter. [address], [place], [address], [place]. tel:[phone] Referring Provider: Ranjit Claudio, [address] [place] [address], [address]. tel:[phone] [facility], [address], [place], [place], [id number], [place] tel:[phone] [facility] Low back pain, unspecifiedSpinal stenosis, lumbar region with neurogenic claudication 2 Ana Laura Porter. [address], [place], [address], [place]. tel:[phone] Referring Provider: Ranjit Claudio, [address] [place] [address], [address]. tel:[phone] Est Pt Eval 25 Min [facility], [address], [place], [place], [address], [place] tel:[phone] [facility] bilateral shoulder pain (chief complaint) back pain (chief complaint) Body mass index (BMI) 36.0-36.9, adultSpondylolisth esis, lumbar regionOther intervertebral disc degeneration, lumbar regionSpinal stenosis, lumbar region with neurogenic claudication 2 Scott Jacob. [address], [place], [address], [place]. tel:[phone] Referring Provider: Ranjit Claudio, [address] [place] [address], [address]. tel:[phone] New Pt Eval 45 Min [facility], [address], [place], [place], [address], [place] tel:[phone] [facility] back pain (chief complaint) Body mass index (BMI) 35.0-35.9, adultLow back pain, unspecifiedSpinal stenosis Jeffery-3 2 Scott Jacob. [address], [place], [address], [place]. tel:[phone] Referring Provider: Ranjit Claudio, [address] [place] [address], [place], [address]. tel:[phone] [facility], [facility], [address], [place], [place], [address], [place] tel:[phone] [facility] No Information 2 Scott Jacob. [address], [place], [place], [address], [place]. tel:[phone] [facility], [address], [place], [place], [address], [place] tel:[phone] [facility] Zhao No Information 2 LIZ HILL. [address], [place], [place], [address], [place]. tel:[phone] Family History Family Member Type Diagnosis Age At Onset No Information Payers Payer name Insurance type Covered alliance party ID Sukhdev pride(s) [facility] [id number] Medical Assistance [facility] [id number] Social History Type Description Quantity Date Captured Comments Alcohol Use Details Unknown Caffeine Use Details Unknown Tobacco Use Status No Information Smoking Status No Information Sex Female Chief Complaint And Reason For Visit No Information Reason For Referral Reason For Referral No Information Plan Of Treatment Date Type Action Status Goal Lifestyle education regardin g diet completed Goal Lifestyle education regardin g diet completed Goal Lifestyle education regardin g diet completed Goal Lifestyle education regardin g diet completed Referral Ordered: Referrals: Behavioral Health. Evaluate and treat ordered Referral Ordered: interspinous spacer Comments -MILD at L3-4 ordered Referral Ordered: interspinous spacer Comments -L3-4 ordered Referral Referred To: transforaminal LESI Ordered: transforaminal LESI on both sides L3-4 ordered Referral Referred To: Physical Therapy Ordered: Physical Therapy. Evaluate and treat ordered Referral Ordered: Obtain - Outside Med Recs: Dr. Jennings ordered History Of Present Illness Encounter Date Complaint History Of Prese nt Illness back pain Severity level i s severe. The problem is worsening. It occurs persistently. The patient describes the pain as an ache and throbbing. back pain The problem is s table. Location of pain is lower back.The patient describes the pain as sharp and stabbing. Symptoms are aggravated by daily activities, sitting, standing and walking. Symptoms are relieved by exercise, massage, pain meds/drugs, physical therapy and stretching. back pain Location of pain is lower back.The patient describes the pain as sharp, shooting and stabbing. Symptoms are aggravated by bending, daily activities, lifting, pushing, sitting, standing and walking. Symptoms are relieved by exercise, massage, pain meds/drugs, physical therapy and stretching. back pain The problem is w orsening. It occurs persistently. Location of pain is lower back.There is no radiation of pain. bilateral shoulder pain Location : bilateral shoulder. The pain radiates to the arms bilaterally. The pain is aching. The pain is aggravated by lifting. The pain is relieved by pain/RX meds and OTC medicines (acetaminophen). back pain Location of pain is middle back and lower back. Pain is radiated to the Both legs.The patient describes the pain as an ache and dull. Symptoms are aggravated by bending, daily activities and walking. Symptoms are relieved by pain meds/drugs. back pain Severity level i s 7. Location of pain is lower back. Functional Status Date Functional Assessmen t No Information Instructions Date Instruction Additional Infor jim Follow up in the cli obey in 2-3 weeksFollow up for the Minute Man procedure as scheduled Related to Radiculopathy, lumbar region - Schedule transfora roly lumbar epidural steroid injection at bilateral L3-4 - Schedule behavioral health appointment via telehealth for implant evaluation-Schedule MILD procedure pending insurance approval - Schedule MinuteMan procedure pending insurance approval- Schedule appointment with primary care provider for surgical clearance for MinuteMan procedure- Follow up as needed Related to Spinal stenosis, lumbar region with neurogenic claudication Same plan of care as statement for above diagnosis, no changes Related to Other intervertebral disc degeneration, lumbar region Lifestyle education regarding di et Related to Body mass index [BMI] 35.0-35.9, adult - Schedule repeat tr ansforaminal lumbar epidural steroid injection at bilateral L3-4- Continue physical therapy as scheduled- Consider MILD procedure as next step if pain persists after lumbar epidural steroid injection- OK to continue over the counter Tylenol as needed for pain relief, NO medication ordered from [facility]- Follow up in one month. Telehealth OK Related to Spinal stenosis, lumbar region with neurogenic claudication Same plan of care as statement for above diagnosis, no changes Related to Other intervertebral disc degeneration, lumbar region Lifestyle education regarding di et Related to Body mass index [BMI] 35.0-35.9, adult - Follow up in the c linic in 2-3 weeksDiscuss repeat TF LESI in 4-6 weeks if pain relief is temporary Provide information about MILD and Minute Man procedure Related to Radiculopathy, lumbar region -Continue with physi sadiq therapy as scheduled-Schedule bilateral transforaminal lumbar epidural steroid injection at bilateral L3-[address] Jameson*Will be evaluated for MILD and Minute Man procedure -Follow up with provider as needed Related to Spinal stenosis, lumbar region with neurogenic claudication Same plan of care as statement for above diagnosis, no changes Related to Other intervertebral disc degeneration, lumbar region Same plan of care as statement for above diagnosis, no changes Related to Spondylolisthesis, lumbar region Lifestyle education regarding di et Related to Body mass index [BMI] 36.0-36.9, adult Same plan of care as statement for above diagnosis, no changes Related to Spinal stenosis - Order lumbar MRI a t [facility] - Order stationary neutral A/P and lateral views x rays at [facility]- Order lateral flexion vs extension x ray of the lumbar spine at [facility]- Schedule physical therapy - Obtain records from Dr. Sykora - After imaging is complete and records have been obtained, will discuss a further plan of care- Follow up with [facility] or Dr. Cecil Chavez in one month Related to Low back pain, unspecified Lifestyle education regarding di et Related to Body mass index [BMI] 35.0-35.9, adult Assessments Type Assessment Date No Information Patient Care Teams Name Effective Dates (start - stop) Status Members No Information
--- OUTSIDE RECORDS SUMMARY | 2023-04-01 07:35 | XMS_ITS | Continuity of Care Document ---
Author Name Unknown Organization TELMA Zhao Address [address] [place] [address] Phone Care Team Providers Care Realtime Court Reporter Name Role Phone Ana Laura Charlotte HARRIS [...] Providers Copied on Encounter YANI Zhao, [address], [place], [place], [id number], [place] tel:[phone] [facility] No Information 3 Ana Laura Porter. [address], [place], [address], [place]. tel:[phone] Referring Provider: John Glasgow, [address], [place], [address]. tel:[phone] Pavel [facility], [address], [place], [place], [address], [place] tel:[phone] [facility] No Information 2 Trino Lopez. [address], [place], [address], [place]. tel:[phone] Referring Provider: John Glasgow, [address], [place], [address]. tel:[phone] [facility], [address], [place], [address], [place] tel:[phone] [facility] back pain (chief complaint) Radiculopathy, lumbar regionRadiculopath y, lumbar region 2 [facility]. [address], [place], [place], [address], [place]. tel:[phone] Referring Provider: John Glasgow, [address], [facility] [place], [address]. tel:[phone] Psychiatric Diagnostic Evaluation Telephone Only Pavel [facility], [address], [place], [place], [address], [place] tel:[phone] [facility] Pain disorder with related psychological factorsMajor depressive disorder, recurrent, mild 2 Antwon Washington. [address], [place], [id number], [place]. tel:[phone] Referring Provider: Ranjit Claudio, [address] [place] [address], [address]. tel:[phone] Est Pt Eval 25 Min Telehealth Pavel [facility], [address], [place], [place], [address], [place] tel:[phone] [facility] back pain (chief complaint) Body mass index (BMI) 35.0-35.9, adultSpinal stenosis, lumbar region with neurogenic claudicationOther intervertebral disc degeneration, lumbar region 2 She Qiying. [address], [place], [address], [place]. tel:[phone] Referring Provider: Ranjit Claudio, [address] [place] [address], [address]. tel:[phone] Pavel, [facility], [address], [place], [place], [address], [place] tel:[phone] [facility] Low back pain, unspecifiedSpinal stenosis, lumbar region with neurogenic claudication 2 Skyler Corrigan. [address], [place], [place], [address], [place]. tel:[phone] Referring Provider: Ranjit Claudio, [address] [place] [address], [address]. tel:[phone] Est Pt Eval 25 Min Pavel, [facility], [address], [place], [place], [address], [place] tel:[phone] [facility] back pain (chief complaint) Body mass index (BMI) 35.0-35.9, adultSpinal stenosis, lumbar region with neurogenic claudicationOther intervertebral disc degeneration, lumbar region 2 She Qiying. [address], [address], [place], [address], [place]. tel:[phone] Referring Provider: Ranjit Claudio, [address] [place] [address], [address]. tel:[phone] Pavel, [facility], [address], [place], [place], [address], [place] tel:[phone] [facility] Low back pain, unspecifiedSpinal stenosis, lumbar region with neurogenic claudication 2 Quinton Tyson. [address], [place], [address], [place]. tel:[phone] Referring Provider: Ranjit Jennings MD [place], [address] [place] [address], [place], [address]. tel:[phone] [facility], [address], [place], [address], [place] tel:[phone] [facility] back pain (chief complaint) Radiculopathy, lumbar regionRadiculopath y, lumbar region 2 [facility]. [address], [place], [place], [address], [place]. tel:[phone] Referring Provider: John Glasgow, [address], [place], [address]. tel:[phone] [facility], [address], [place], [place], [address], [place] tel:[phone] [facility] Linda No Information 2 Trino Lopez. [address], [place], [address], [place]. tel:[phone] Referring Provider: John Glasgow, [address], [place], [address]. tel:[phone] [facility], [address], [place], [place], [id number], [place] tel:[phone] [facility] Low back pain, unspecifiedSpinal stenosis, lumbar region with neurogenic claudication 2 Ana Laura Porter. [address], [place], [address], [place]. tel:[phone] Referring Provider: Ranjit Claudio, [address] [place] [address], [address]. tel:[phone] [facility], [address], [place], [place], [address], [place] tel:[phone] [facility] Low back pain, unspecifiedSpinal stenosis, lumbar region with neurogenic claudication 2 Ana Laura Porter. [address], [place], [address], [place]. tel:[phone] Referring Provider: Ranjit Claudio, [address] [place] [address], [address]. tel:[phone] Est Pt Eval 25 Min [facility], [address], [place], [place], [address], [place] tel:[phone] [facility] bilateral shoulder pain (chief complaint) back pain (chief complaint) Body mass index (BMI) 36.0-36.9, adultSpondylolisth esis, lumbar regionOther intervertebral disc degeneration, lumbar regionSpinal stenosis, lumbar region with neurogenic claudication 2 Scott Jacob. [address], [place], [address], [place]. tel:[phone] Referring Provider: Ranjit Claudio, [address] [place] [address], [address]. tel:[phone] New Pt Eval 45 Min [facility], [address], [place], [place], [address], [place] tel:[phone] [facility] back pain (chief complaint) Body mass index (BMI) 35.0-35.9, adultLow back pain, unspecifiedSpinal stenosis Jeffery-3 2 Scott Jacob. [address], [place], [address], [place]. tel:[phone] Referring Provider: Ranjit Claudio, [address] [place] [address], [place], [address]. tel:[phone] [facility], [facility], [address], [place], [place], [address], [place] tel:[phone] [facility] No Information 2 Scott Jacob. [address], [place], [place], [address], [place]. tel:[phone] [facility], [address], [place], [place], [address], [place] tel:[phone] RIVAS Zhao No Information 2 LIZ HILL. [address], [place], [place], [address], [place]. tel:[phone] Family History Family Member Type Diagnosis Age At Onset No Information Payers Payer name Insurance type Covered libertarian ID Sukhdev pride(s) [facility] 16 [id number] Medical Assistance [facility] [id number] Social History Type Description Quantity Date Captured [...] education regardin g diet completed Referral Ordered: interspinous spacer Comments -L3-4 ordered Referral Ordered: interspinous spacer Comments -MILD at L3-4 ordered Referral Ordered: Referrals: Behavioral Health. Evaluate and treat ordered Referral Referred To: transforaminal LESI Ordered: transforaminal LESI on both sides L3-4 ordered Referral Ordered: Obtain - Outside Med Recs: Dr. Jennings ordered Referral Referred To: Physical Therapy Ordered: Physical Therapy. Evaluate and treat ordered History Of Present Illness Encounter Date [...]
[2023-04-01] MEDS: OXYCODONE (CR) 10 MG TAB.ER.12H PO (08:00)
[2023-04-01] MEDS: CELECOXIB 200 MG CAPSULE PO (08:00)
[2023-04-01] MEDS: ACETAMINOPHEN 500 MG TABLET 1000 MG PO ×3 (08:00→18:55)
[2023-04-01] MEDS: SODIUM CHLORIDE 0.9 % (FLUSH) 10 ML SYRINGE IVF (08:15)
[2023-04-01] MEDS: LACTATED RINGERS 1000 ML 1,000 ML 100 ML IV (08:15)
--- NOTE | 2023-04-01 08:44 | SUR.PREOP ---
CANCELED NASAL IODINE SWAB ORDER DUE TO PATIENTS IODINE ALLERGY.
--- NOTE | 2023-04-01 08:49 | SUR.PREOP ---
TIME?OUT:?0849 PT/RN/MDA?VERIFICATION?OF?SURGICAL?SITE,?PROCEDURE,?AND?CONSENT OBTAINED?PRIOR?TO?INVASIVE?PROCEDURE.
[2023-04-01] MEDS: MIDAZOLAM HCL 1 MG/ML inj IVP (08:51)
[2023-04-01] MEDS: fentaNYL 100 MCG/2 ML inj IVP (08:51)
[2023-04-01] MEDS: CEFAZOLIN 2 GM INJ IVP (09:33)
[2023-04-01] MEDS: TRANEXAMIC ACID 100 MG/ML INJ 1000 MG IV (09:34)
--- NOTE | 2023-04-01 10:05 | P.ANES_ITS ---
Anesthesia Charges Start Date/Time Anesthesia Start Date: 04/01/23 Anesthesia Start Time: 09:10 Stop Date/Time Anesthesia Stop Date: 04/01/23 Anesthesia Stop Time: 11:25 Summary Extremes of Age - Over 70 or under 1: [employer]
--- NOTE | 2023-04-01 10:33 | XR_ITS ---
Final Report Patient: BRANDIE KAUR Facility:?[facility] Patient ID:?[id number] Site Patient ID:?[id number]. Site :?[id number] Study:?XRay Extremity Left 2V KNEE-04/01/2023 11:49:33 AM Ordering Physician:?DR. 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 Bone alignment is normal. No sign of acute fracture. Postop changes are within normal limits. Dictated by Luis Osorio MD @ 04/01/2023 12:05:14 PM (Electronic Signature)
--- NOTE | 2023-04-01 10:35 | P.ORPRC_ITS ---
Procedure Note Date of procedure: 04/01/23 Procedure: PREOPERATIVE DIAGNOSIS: Left knee osteoarthritis POSTOPERATIVE DIAGNOSIS: Left knee osteoarthritis NAME OF OPERATION: Left total knee arthroplasty SURGEON: Manas Barrera MD CT MANAGER: Cheyenne Neely PA-C ANESTHESIA: Spinal ESTIMATED BLOOD LOSS: 0 mL COMPLICATIONS: None SPECIMENS: None DRAINS: None PREOPERATIVE ANTIBIOTICS: Ancef 2 grams, antibiotic impregnated cement IMPLANTS: 1. J&J Attune #4 posterior stabilized femur 2. #4 fixed-bearing tibia 3. #4 posterior stabilized, 5 mm fixed-bearing polyethylene 4. 35 patella INDICATIONS: The patient is a 72-year-old with a longstanding history of severe, unrelenting left knee pain secondary to end-stage (grade IV) left knee osteoarthritis. Despite appropriate nonoperative management, including activity modification, anti-inflammatories, goyi-qco-qigfzth pain medication, bracing, physical therapy, and injections they continue to have pain and disability. Operative intervention was offered. The risks, benefits and expected outcomes were discussed in detail. These included but were not limited to: Infection, bleeding, injury to blood vessel or nerve, venous thromboembolism. All questions were answered to their satisfaction. Use of an assistant front desk manager was necessary throughout the case for patient positioning and safety, soft tissue retraction, and closure. A modifier 22 should be added to this case. The patient is morbidly obese with a weight of 80 kg and a BMI of 34.7 kg/meter squared. PROCEDURE: Spinal anesthesia was administered. The patient was placed supine on the operating table. The assistant front desk manager made sure the patient was positioned appropriately. The lower extremity was prepped and draped in the usual sterile fashion. The limb was exsanguinated with the Cristo bandage. The pneumatic tourniquet was inflated to 300 mmHg. A standard anterior incision was made with the knee in flexion. Subcutaneous dissection was sharply taken through fascial layer #1. Full-thickness medial and lateral flaps were elevated. The assistant front desk manager retracted the soft tissues and protected them throughout the case. A standard subvastus approach was made. The patella was everted. The infrapatellar fat pad was preserved. The menisci and cruciate ligaments were sharply d?brided. Marginal osteophytes were d?brided with the rongeur. The drill was used to penetrate the femoral canal. The canal was aspirated and irrigated with pulse lavage. The intramedullary femoral guide was placed for a 5-degree valgus cut, removing 11 mm off the distal femur. The saw was used to make the cut. Whitesides line and the trans epicondylar axis were marked. The femoral sizing guide was pinned onto the distal femur. Three degrees of external rotation nicely parallels the transepicondylar axis. Pins were placed for posterior referencing. The four-in-one cutting guide was pinned onto the distal femur. The anterior, posterior, and chamfer cuts were made. The assistant front desk manager protected the collateral ligaments. The box cutting guide was pinned. The box cuts were made. The boxed trial was placed and was an excellent fit. Drill holes for the lugs were made. Attention was then turned to the proximal tibia. The extramedullary tibial guide was placed for a neutral varus/valgus cut with 5 degrees of posterior slope, removing 1 mm based off the medial tibial surface. The assistant front desk manager protected the collateral ligaments and the neurovascular bundle. The saw was used to make the cut. Trial components were placed. The knee was nicely balanced in both flexion and extension. The trial components were removed. The tray was placed in appropriate rotation, parallel to our tibial cutting pins. It was pinned by the assistant front desk manager and the drill and the punch were used. The tray was removed. The punch was used again. We placed a bone plug in the femoral canal. Attention was then turned to the patella. Marshall patellar thickness was 19 mm. The lobster claw resection guide was used with the saw blade and the 7.5 mm henri. The saw was used to make the cut. Drill holes were made by the assistant front desk manager. The trial was placed and was an excellent fit. Cancellous surfaces were irrigated with pulse lavage and thoroughly dried by the assistant front desk manager. We cemented the tibial component, then the femoral component. We impacted the 5 mm polyethylene onto the tibial tray. The knee was brought into full extension. We then cemented the patellar component. Excessive cement was removed. The cement was allowed to harden. The knee was taken through a range of motion and was found to be nicely balanced in both flexion and extension. The patella tracks centrally. The assistant front desk manager did a three minute dilute Betadine solution soak. The assistant front desk manager irrigated the wound with 3 liters of normal saline via pulse lavage. The assistant front desk manager reapproximated the extensor mechanism with #1 Vicryl in an interrupted adbstb-yb-svlqb fashion. The assistant front desk manager then ran the extensor mechanism with a #1 PDO Stratafix. The assistant front desk manager closed the subcutaneous tissues with a 3-0 Stratafix and the skin with a running 3-0 Stratafix in a subcuticular fashion. Glue was used to seal the skin. The assistant front desk manager placed a dry dressing, REINA stocking, and Polar Care. Sponge and needle counts were correct x2. The patient tolerated the procedure well. There were no apparent complications. They were carefully transferred to the hospital bed and taken to the postanesthesia care unit in satisfactory condition. PLAN: The patient will be mobilized with physical therapy. Aspirin will be used for DVT prophylaxis. They will be discharged to a correction facility once medically appropriate.
--- NOTE | 2023-04-01 10:51 | P.NB_ITS ---
Nerve Block Nerve Block Time Seen by Provider: 08:54 Date Seen: 04/01/23 Type of block requested by surgeon for post-operative analgesia: adductor canal Side: left Time out performed: Yes Verification of patient name: Yes Verification of date of : Yes Site marking: site marked Name of person performing procedure: Yossi Continuous monitoring Was continuous monitoring of O2 sat, B/P, color television console monitor, recorded every 15 minutes?: Yes Procedure Checklist: sterile prep, needles and gloves Ultrasound guided. Images saved: Yes Medications given in 5ml increments after negative aspiration: Ropivicaine %: 0.5 mL: 20 Needle gauge: 20 Decadron (mg): 10 Precedex (mcg): 25 Patient tolerated procedure well: Yes Additional comments: Needle noted adjacent to nerve Block Charges Block Charge (with Pro Fee): Femoral Nerve Use of Ultrasound Machine for Block: Yes- US Guidance/pain block
--- NOTE | 2023-04-01 10:52 | W.PM.NB ---
Nerve Block Nerve Block Time Seen by Provider: 08:54 Date Seen: 04/01/23 Type of block requested by surgeon for post-operative analgesia: geniculars Side: left Time out performed: Yes Verification of patient name: Yes Verification of date of : Yes Site marking: site marked Name of person performing procedure: Yossi Continuous monitoring Was continuous monitoring of O2 sat, B/P, rail express clerk, recorded every 15 minutes?: Yes Procedure Checklist: sterile prep, needles and gloves Medications given in 5ml increments after negative aspiration: Ropivicaine %: 0.5 mL: 9 Needle gauge: 25 Patient tolerated procedure well: Yes Block Charges Block Charge (with Pro Fee): Genicular Nerve Block Use of Ultrasound Machine for Block: No
--- NOTE | 2023-04-01 10:52 | W.ANESCHARGE ---
Anesthesia Charges Start Date/Time Anesthesia Start Date: 04/01/23 Anesthesia Start Time: 09:10 Stop Date/Time Anesthesia Stop Date: 04/01/23 Anesthesia Stop Time: 11:25 Summary Extremes of Age - Over 70 or under 1: MDA
--- NOTE | 2023-04-01 12:58 | PC.SOCIAL ---
Discharge planning- Met with pt to discuss discharge plans. Pt states that she would like SNF for rehab. Pt's first choice is [facility]. This worker will keep pt updated. Phone call to Ynes in admissions at [facility] at [phone]. There are openings, secure e-mailed referral to the [facility]. Social work will follow up as needed.
--- NOTE | 2023-04-01 13:42 | PM.IMCN1 ---
Date of Consult Consult date: 04/01/23 Requesting Physician: Orthopedics Primary Care Provider: Ranjit Jennings MD Consult Narrative Reason for consult: Medical management Narrative: Christy Florian is a 72 year old female past medical history significant for diabetes mellitus, insulin dependent, hyperlipidemia, hypertension, hypokalemia, osteoarthritis, MYRNA, CKD stage 3, hypothyroidism, depression, hypoxia is POD#0 s/p left total knee arthroplasty. Patient tells me her pain is currently well controlled. Denies headache or dizziness. Denies chest pain or shortness of breath. Has not been nauseous. Review of Systems Narrative: REVIEW OF SYSTEMS: Complete review of systems performed and negative unless otherwise stated in HPI or below. [facility] Medical History (Updated 04/01/23 @ 13:57 by Myesha Snow PA-C) MYRNA (obstructive sleep apnea) ?G47.33 - Obstructive sleep apnea (adult) (pediatric) (ICD-10) GERD (gastroesophageal reflux disease) ?K21.9 - Gastro-esophageal reflux disease without esophagitis (ICD-10) Hypothyroid ?E03.9 - Hypothyroidism, unspecified (ICD-10) Type 2 diabetes mellitus ?E11.9 - Type 2 diabetes mellitus without complications (ICD-10) Hypertension ?I10 - Essential (primary) hypertension (ICD-10) Elevated cholesterol ?E78.00 - Pure hypercholesterolemia, unspecified (ICD-10) Breathing problem ?R06.9 - Unspecified abnormalities of breathing (ICD-10) Surgical History History of lumpectomy of left breast ?Z98.890 - Other specified postprocedural states (ICD-10) Hx of dilation and curettage ?Z98.890 - Other specified postprocedural states (ICD-10) Hx of cholecystectomy ?Z90.49 - Acquired absence of other specified parts of digestive tract (ICD-10) Hx of carpal tunnel repair ?Z98.890 - Other specified postprocedural states (ICD-10) Hx of section ?Z98.891 - History of uterine scar from previous surgery (ICD-10) H/O shoulder replacement ?Z96.619 - Presence of unspecified artificial shoulder joint (ICD-10) History of arthroplasty of right hip (10/28/16) ?Z98.890 - Other specified postprocedural states (ICD-10) Social History What is your current living situation?: I presently have a place to live Problems where you live: no known problems Problems where you live details: none In the past 12 months, utilities in danger of being shut off: no In past 12 months, lack of transportation kept you from medical appts, meetings, work, or getting things needed for daily living: no In the past 12 mos, have been you worried that your food would run out before you had money to buy more?: never true In the past 12 mos, the food you bought just didn't last and you didn't have money to buy more?: never true Highest level of school completed/degree received: high school graduate Smoking Status: Never smoker Do you use any of these nicotine containing products: None Second hand tobacco smoke exposure: No How often do you have a drink containing alcohol: never How often do you have six or more drinks on one occasion: Never AUDIT-C Alcohol total score: 0 Non-prescribed substance use: denies use Caffeine: Yes (Caffeine pills once daily in AM) How often does anyone, including family, friends and others, physically hurt you: never How often does anyone, including family, friends and others, insult or talk down to you: never How often does anyone, including family, friends and others, threaten you with harm: never How often does anyone, including family, friends and others, scream or curse at you: never service: No Meds Home Medications and Allergies Home Medications Medication Instructions Recorded Confirmed Type albuterol sulfate 2.5 mg/3 mL 2.5 mg continuous nebulization Q6H 12/11/22 03/31/23 History (0.083 %) solution for nebulization PRN atorvastatin 40 mg tablet 40 mg PO DAILY 12/11/22 03/31/23 History desmopressin 0.1 mg tablet 0.1 mg PO QPM 12/11/22 03/31/23 History desvenlafaxine succinate 100 mg 100 mg PO DAILY 12/11/22 03/31/23 History tablet,extended release 24 hr docusate sodium 100 mg capsule 100 mg PO BID 12/11/22 03/31/23 History dulaglutide 1.5 mg/0.5 mL 1.5 mg subcut .weekly 12/11/22 03/31/23 History subcutaneous pen injector (Trulicity) fenofibrate 160 mg tablet 160 mg PO DAILY 12/11/22 03/31/23 History glyburide 5 mg tablet 5 mg PO DAILY 12/11/22 03/31/23 History ibuprofen 600 mg tablet 600 mg PO Q6H PRN 12/11/22 01/20/23 History insulin glargine 100 unit/mL (3 14 unit subcut HS 12/11/22 03/31/23 History mL) subcutaneous pen (Lantus Solostar U-100 Insulin) ipratropium bromide 0.02 % inhalation 12/11/22 01/20/23 History solution for inhalation levothyroxine 75 mcg tablet 75 mcg PO DAILY 12/11/22 03/31/23 History losartan 100 mg tablet 100 mg PO DAILY 12/11/22 03/31/23 History mirabegron 50 mg tablet,extended 50 mg PO DAILY 12/11/22 03/31/23 History release 24 hr (Myrbetriq) mirtazapine 15 mg tablet 15 mg PO QPM 12/11/22 03/31/23 History nitrofurantoin 1 cap PO BID 12/11/22 01/20/23 History monohydrate/macrocrystals 100 mg capsule omeprazole 40 mg capsule,delayed 40 mg PO DAILY 12/11/22 01/20/23 History release polyethylene glycol 3350 17 17 g PO DAILY 12/11/22 03/31/23 History gram/dose oral powder potassium chloride 20 mEq 20 meq PO BID 12/11/22 03/31/23 History tablet,extended release(part/cryst) sennosides 8.6 mg-docusate sodium tab PO 12/11/22 01/20/23 History 50 mg tablet (Stimulant Laxative Plus) trazodone 100 mg tablet 300 mg PO HS PRN 12/11/22 03/31/23 History aspirin 81 mg tablet,delayed 81 mg PO DAILY 03/31/23 03/31/23 History release aripiprazole 15 mg tablet 15 mg PO DAILY 04/01/23 04/01/23 History cetirizine 10 mg tablet 10 mg PO DAILY 04/01/23 04/01/23 History Allergies Allergy/AdvReac Type Severity Reaction Status Date / Time bupropion Allergy Unknown Verified 04/01/23 08:45 cat dander Allergy Unknown Verified 04/01/23 08:45 cefprozil Allergy Unknown Verified 04/01/23 08:45 chlorpheniramine Allergy Unknown Verified 04/01/23 08:45 hydrocortisone Allergy Unknown Verified 04/01/23 08:45 hydroxyzine Allergy Unknown Verified 04/01/23 08:45 neomycin Allergy Unknown Verified 04/01/23 08:45 Penicillins Allergy Unknown Verified 04/01/23 08:45 polymyxin B Allergy Unknown Verified 04/01/23 08:45 propylene glycol Allergy Unknown Verified 04/01/23 08:45 senna Allergy Unknown Verified 04/01/23 08:45 sulfamethoxazole Allergy Unknown Verified 04/01/23 08:45 [From Sulfamethoxazole-Trimethoprim] trimethoprim Allergy Unknown Verified 04/01/23 08:45 [From Sulfamethoxazole-Trimethoprim] ziprasidone Allergy Unknown Verified 04/01/23 08:45 iodine Allergy Verified 04/01/23 08:45 levofloxacin Allergy Verified 04/01/23 08:45 lisinopril Allergy Cough Verified 04/01/23 08:45 horse derived products Allergy Unknown Uncoded 01/20/23 13:37 Exam Narrative: Exam Narrative: PHYSICAL EXAM General: Pleasant, conversant, NAD HEENT: Normocephalic, atraumatic, sclera white, EOMI, oral mucosa moist Cardiovascular: RRR, S1S2. No pitting edema Pulmonary: CTA bilaterally without rhonchi, rales, expiratory wheezes. No dyspnea Abdominal: Soft, nondistended, NTTP Neurological: Alert, answering questions appropriately, cranial nerves intact, no focal findings Extremities: No gross joint deformity or swelling. Postoperative dressing in place, dry. Neurovascularly intact Skin: Warm, dry. Const: Vital Signs, click to edit/add: Vital Signs - 24 hr 04/01/23 08:01 04/01/23 08:51 04/01/23 08:55 Temperature 98.3 F Pulse Rate 86 86 86 Respiratory Rate 16 16 16 Blood Pressure 142/64 H 121/53 L 122/57 L Pulse Oximetry 94 94 95 Oxygen Delivery Me thod Room Air Nasal Cannula Nasal Cannula Oxygen Flow Rate 2 2 04/01/23 09:00 04/01/23 11:20 04/01/23 11:25 Temperature 98.2 F Pulse Rate 84 76 76 Respiratory Rate 16 18 18 Blood Pressure 112/46 L 135/63 133/58 L Pulse Oximetry 96 94 95 Oxygen Delivery Me thod Nasal Cannula Room Air Oxygen Flow Rate 2 04/01/23 11:30 04/01/23 11:35 04/01/23 11:40 Temperature Pulse Rate 71 74 77 Respiratory Rate 20 18 15 Blood Pressure 136/63 152/74 H 153/74 H Pulse Oximetry 94 93 93 Oxygen Delivery Me thod Oxygen Flow Rate 04/01/23 11:45 04/01/23 11:50 Temperature 97.5 F L Pulse Rate 72 70 Respiratory Rate 16 16 Blood Pressure 158/66 H 162/63 H Pulse Oximetry 93 93 Oxygen Delivery Me thod Room Air Oxygen Flow Rate Assessment and Plan Assessment and plan (1) Osteoarthritis of left knee: Problem comment: -POD#0 s/p L TKA -perioperative management including pain management and anticoagulation per Orthopedic surgery -encourage postoperative pulmonary hygiene, incentive spirometry -PT OT consults -social media content specialist to assist with discharge planning/placement needs Status: Acute (2) Type 2 diabetes mellitus: Problem comment: -usual home dose Lantus 14 units. Ordered 7 units to start, will adjust as necessary -hold Trulicity. Continue glyburide -diabetic diet, glucose checks ACHS, insulin sliding scale Status: Chronic (3) Elevated cholesterol: Problem comment: -continue statin Status: Chronic (4) Hypertension: Problem comment: -continue home medications Status: Chronic (5) Hypothyroid: Problem comment: -continue levothyroxine Status: Chronic (6) MYRNA (obstructive sleep apnea): Problem comment: -use home CPAP Status: Chronic Plan Patient will need postoperative placement, retirement facility
[2023-04-01] MEDS: 0.9 % SODIUM CHLORIDE 250 ml IV (16:25)
[2023-04-01] MEDS: CEFAZOLIN 2 GM in 0.9 % SODIUM CHLORIDE Mini-bag 100 ML IVPB (18:35)
[2023-04-01] MEDS: MIRTAZAPINE 15 MG TABLET PO (18:55)
--- NOTE | 2023-04-01 19:33 | PC.NURSE ---
End of shift [id number] - Pt arrived from PACU at approximately 1155. Pt alert, oriented, cooperative, pleasant. Pt denied pain in L knee on arrival, denied SOB, nausea, vomiting. Tolerating RA, regular diet, fluids. Up to bathroom and with PT with standby assistance. Pt able to void during shift. Pt reported pain in L knee as high as 2/10 during shift, managed with medications per MAR with verbalized improvement. Cryocuff in place, pedal pulse present, dressing CDI. Pt appears to be resting comfortably at end of shift.
[2023-04-01] MEDS: ASPIRIN 81 MG TABLET EC PO (20:42)
[2023-04-01] MEDS: POTASSIUM CHLORIDE 10 MEQ CAPSULE ER 20 MEQ PO (20:42)
[2023-04-01] MEDS: DOCUSATE SODIUM 100 MG CAPSULE PO (20:42)
[2023-04-01] MEDS: OXYCODONE 5 MG TABLET PO (22:53)
[2023-04-02] MEDS: ACETAMINOPHEN 500 MG TABLET 1000 MG PO (01:51)
[2023-04-02] MEDS: CEFAZOLIN 2 GM in 0.9 % SODIUM CHLORIDE Mini-bag 100 ML IVPB (01:52)
[2023-04-02 03:25] VITALS: BP 164/74; PULSE 84; RESP 16; TEMP 36.3; O2SAT 95
[2023-04-02] MEDS: LEVOTHYROXINE 75 MCG TABLET PO (06:29)
--- NOTE | 2023-04-02 06:46 | PC.NURSE ---
End of shift note [id number]: Pt noted to be alert & oriented x 4 and using call light appropriately. IV to R hand patent and SL. Restricted extremity to LUE with band in place. L knee pain has been controlled with scheduled Tylenol and cryo cuff along with rest and repositioning. PRN Oxycodone given last night for c/o 5/10 pain to LLE. Pt has reported pain as 2-3/10 since that time. CMS to LLE intact. REINA stockings and plexi pulses worn to BLEs. Dressing to anterior L knee noted to be C/D/I upon inspection. VSS and pt has been afebrile. Pt continent of bladder and reports last BM of 03/31/23. Pt reports intermittent nonproductive dry cough and states, ?I?ve had a head cold for about a week and a half?. Lung sounds noted to be clear to all lobes bilaterally upon auscultation. Pt transferring/ambulating well with SBA using GB and FWW.
[2023-04-02 07:00] VITALS: BP 141/62; PULSE 75; RESP 18; TEMP 36.7; O2SAT 95
[2023-04-02 07:12] LABS: Basophils Absolute Auto 0.01 K/uL (0.00-0.30); Basophils Percent Auto 0.1 % (0.0-3.0); Eosinophils Absolute Auto 0.01 K/uL (0.00-0.50); Eosinophils Percent Auto 0.1 % (0.0-7.0); Hematocrit 39.8 % (33.0-51.0); Hemoglobin* 13.5 gm/dL (12.0-16.0); Immature Granulocytes Abs Auto 0.02 K/uL (0.00-0.30); Immature Granulocytes Pct Auto 0.2 %; Lymphocytes Percent Auto 10.8 % (20-44); Mean Corpuscular HGB Conc 34 gm/dL (32-36); Mean Corpuscular Hemoglobin 30 pg (26-34); Mean Corpuscular Volume 87 fL (80-100); Monocytes Percent Auto 8.8 % (0.0-11.0); Platelet Count* 253 K/uL (140-440); RDW Coefficient of Variation % 12.2 % (11.5-15.5); Red Blood Count 4.58 m/uL (4.00-5.20); White Blood Count* 9.89 K/uL (4.50-11.00)
[2023-04-02 07:14] LABS: Slide Review Reflex No
[2023-04-02 07:20] LABS: Potassium* 4.4 mmol/L (3.6-5.1); Sodium* 139 mmol/L (135-149)
[2023-04-02 07:23] LABS: Blood Urea Nitrogen* 24 mg/dL (7-30); Est. Creatinine Clearance* 36.53; Estimated Glomerular Filt Rate 60 ml/min; INR 1.05 (0.91-1.10); Prothrombin Time 14.3 Seconds
--- NOTE | 2023-04-02 07:36 | PM.ORPN ---
Subjective Subjective Time Seen by Provider: 07:36 Date Seen: 04/02/23 Principal diagnosis: Status post left knee replacement Interval history: Christy is comfortable this morning in a recliner. She is having breakfast. She denies nausea vomiting. Ortho Exam Narrative Exam Narrative: Alert and oriented x3. Patient is in no acute distress. Converses without labored breathing. Hearing is grossly intact. Ambulates with a walker. Examination the left lower extremity shows the dressing is intact. CMS is intact left lower extremity. Calf is soft and nontender. Able to straight leg raise with ease. Minimal soft tissue edema. Minimal effusion. Const Vital Signs, click to edit/add: Vital Signs - 24 hr 04/01/23 08:01 04/01/23 08:51 04/01/23 08:55 Temperature 98.3 F Pulse Rate 86 86 86 Pulse Rate [Left Pulse Oximeter] Respiratory Rate 16 16 16 Blood Pressure 142/64 H 121/53 L 122/57 L Blood Pressure [Right Arm] Pulse Oximetry 94 94 95 Oxygen Delivery Method Room Air Nasal Cannula Nasal Cannula Oxygen Flow Rate 2 2 04/01/23 09:00 04/01/23 11:20 04/01/23 11:25 Temperature 98.2 F Pulse Rate 84 76 76 Pulse Rate [Left Pulse Oximeter] Respiratory Rate 16 18 18 Blood Pressure 112/46 L 135/63 133/58 L Blood Pressure [Right Arm] Pulse Oximetry 96 94 95 Oxygen Delivery Method Nasal Cannula Room Air Oxygen Flow Rate 2 04/01/23 11:30 04/01/23 11:35 04/01/23 11:40 Temperature Pulse Rate 71 74 77 Pulse Rate [Left Pulse Oximeter] Respiratory Rate 20 18 15 Blood Pressure 136/63 152/74 H 153/74 H Blood Pressure [Right Arm] Pulse Oximetry 94 93 93 Oxygen Delivery Method Oxygen Flow Rate 04/01/23 11:45 04/01/23 11:50 04/01/23 11:55 Temperature 97.5 F L 95.8 F L Pulse Rate 72 70 Pulse Rate [Left Pulse Oximeter] 79 Respiratory Rate 16 16 20 Blood Pressure 158/66 H 162/63 H Blood Pressure [Right Arm] 127/54 L Pulse Oximetry 93 93 96 Oxygen Delivery Method Room Air Room Air Oxygen Flow Rate 04/01/23 12:10 04/01/23 12:25 04/01/23 12:40 Temperature 96.3 F L Pulse Rate Pulse Rate [Left Pulse Oximeter] 71 67 65 Respiratory Rate 20 20 20 Blood Pressure Blood Pressure [Right Arm] 136/61 156/56 H 170/64 H Pulse Oximetry 98 95 95 Oxygen Delivery Method Room Air Room Air Room Air Oxygen Flow Rate 04/01/23 12:55 04/01/23 12:58 04/01/23 13:25 Temperature 96.9 F L 95.8 F L 96.9 F L Pulse Rate 79 Pulse Rate [Left Pulse Oximeter] 64 60 Respiratory Rate 20 20 20 Blood Pressure Blood Pressure [Right Arm] 165/55 H 127/54 L 154/58 H Pulse Oximetry 98 96 96 Oxygen Delivery Method Room Air Room Air Room Air Oxygen Flow Rate 04/01/23 13:55 04/01/23 14:55 04/01/23 14:55 Temperature Pulse Rate Pulse Rate [Left Pulse Oximeter] 81 80 80 Respiratory Rate 20 20 20 Blood Pressure Blood Pressure [Right Arm] 170/99 H 150/75 H 150/75 H Pulse Oximetry 95 96 96 Oxygen Delivery Method Room Air Room Air Room Air Oxygen Flow Rate 04/01/23 15:55 04/01/23 15:55 04/01/23 16:55 Temperature 97.9 F 97.9 F 98.2 F Pulse Rate Pulse Rate [Left Pulse Oximeter] 74 74 84 Respiratory Rate 20 20 20 Blood Pressure Blood Pressure [Right Arm] 153/70 H 153/70 H Pulse Oximetry 94 94 94 Oxygen Delivery Method Room Air Room Air Room Air Oxygen Flow Rate 04/01/23 19:54 04/01/23 22:57 04/01/23 22:59 Temperature 97.8 F 97.3 F L Pulse Rate Pulse Rate [Left Pulse Oximeter] 81 93 93 Respiratory Rate 20 18 18 Blood Pressure Blood Pressure [Right Arm] 139/64 152/93 H Pulse Oximetry 93 94 Oxygen Delivery Method Room Air Room Air Oxygen Flow Rate 04/02/23 03:25 Temperature 97.3 F L Pulse Rate Pulse Rate [Left Pulse Oximeter] 84 Respiratory Rate 16 Blood Pressure Blood Pressure [Right Arm] 164/74 H Pulse Oximetry 95 Oxygen Delivery Method Room Air Oxygen Flow Rate 2 Assessment and Plan Assessment and plan (1) Status post left knee replacement: Problem details: 04/01/2023 Status: Acute Assessment and Plan: Plan for discharge is today to long-term facility when available. DVT prophylaxis includes aspirin 81 mg twice daily x1 month, Og stockings x1 month may remove for 1 hr per day, frequent ambulation Remove dressing in 1 week. Observe wound and phone Orthopedics with any questions or concerns Return to clinic in 1 week for a wound check Return to clinic in 6 weeks with surgeon Minimize narcotic use. Wean off and discontinue soon as possible. Activities as tolerated. No strenuous activity. OT and PT daily at long-term facility, then PT outpatient. Ice and elevate the operative extremity. No restriction on ice.
[2023-04-02] MEDS: OXYCODONE 5 MG TABLET PO (09:42)
[2023-04-02] MEDS: POTASSIUM CHLORIDE 10 MEQ CAPSULE ER 20 MEQ PO (09:42)
[2023-04-02] MEDS: DOCUSATE SODIUM 100 MG CAPSULE PO (09:42)
[2023-04-02] MEDS: ATORVASTATIN CALCIUM 40 MG TABLET PO (09:42)
[2023-04-02] MEDS: LOSARTAN POTASSIUM 50 MG TABLET 100 MG PO (09:42)
[2023-04-02] MEDS: ASPIRIN 81 MG TABLET EC PO (09:43)
[2023-04-02] MEDS: glyBURIDE 5 MG TABLET PO (09:43)
[2023-04-02] MEDS: CETIRIZINE HCL 10 MG TABLET PO (09:43)
[2023-04-02] MEDS: ARIPiprazole 10 MG TABLET 15 MG PO (09:43)
[2023-04-02] MEDS: DESVENLAFAXINE SUCCINATE ER 50 MG TAB 100 MG PO (09:43)
[2023-04-02] MEDS: FENOFIBRATE 145 MG TABLET PO (09:43)
--- NOTE | 2023-04-02 10:18 | P.IMPN_ITS ---
Progress Note: A&P Assessment and plan (1) Osteoarthritis of left knee: Problem details: -POD#1 s/p L TKA -perioperative management including pain management and anticoagulation per Orthopedic surgery -encourage postoperative pulmonary hygiene, incentive spirometry -PT OT consults -social services director to assist with discharge planning/placement needs - discharging to [facility] today Status: Acute (2) Type 2 diabetes mellitus: Problem details: -usual home dose Lantus 14 units. Ordered 7 units to start, will adjust as necessary -hold Trulicity. Continue glyburide -diabetic diet, glucose checks ACHS, insulin sliding scale Status: Chronic (3) Elevated cholesterol: Problem details: -continue statin Status: Chronic (4) Hypertension: Problem details: -continue home medications Status: Chronic (5) Hypothyroid: Problem details: -continue levothyroxine Status: Chronic (6) MYRNA (obstructive sleep apnea): Problem details: -use home CPAP Status: Chronic Plan Patient is discharging [facility] today. Postoperative plan of care per Orthopedic surgery. Time Spent With Patient Total time spent: Total time spent caring for the patient today was 30 minutes. This includes time spent for the visit reviewing the chart, time spent during the visit, time spent after the visit and documentation and planning in coordination of care. Subjective Date Seen: 04/02/23 Interval history: Patient is seen sitting up in chair this morning. Awaiting placement. Pain remains well controlled. Tolerating orals without nausea vomiting. No events reported overnight. Exam Narrative: Exam Narrative: PHYSICAL EXAM General: Pleasant, conversant, NAD Cardiovascular: RRR, S1S2. No pitting edema Pulmonary: CTA bilaterally without rhonchi, rales, expiratory wheezes. No dyspnea Neurological: Alert, answering questions appropriately, cranial nerves intact, no focal findings Extremities: No gross joint deformity or swelling. Postoperative dressing in place, dry. Neurovascularly intact Skin: Warm, dry. Const: Vital Signs, click to edit/add: Vital Signs - 24 hr 04/01/23 11:20 04/01/23 11:25 04/01/23 11:30 Temperature 98.2 F Pulse Rate 76 76 71 Pulse Rate [Left P ulse Oximeter] Respiratory Rate 18 18 20 Blood Pressure 135/63 133/58 L 136/63 Blood Pressure [Ri ght Arm] Pulse Oximetry 94 95 94 Oxygen Delivery Me thod Room Air Oxygen Flow Rate 04/01/23 11:35 04/01/23 11:40 04/01/23 11:45 Temperature Pulse Rate 74 77 72 Pulse Rate [Left P ulse Oximeter] Respiratory Rate 18 15 16 Blood Pressure 152/74 H 153/74 H 158/66 H Blood Pressure [Ri ght Arm] Pulse Oximetry 93 93 93 Oxygen Delivery Me thod Oxygen Flow Rate 04/01/23 11:50 04/01/23 11:55 04/01/23 12:10 Temperature 97.5 F L 95.8 F L 96.3 F L Pulse Rate 70 Pulse Rate [Left P ulse Oximeter] 79 71 Respiratory Rate 16 20 20 Blood Pressure 162/63 H Blood Pressure [Ri ght Arm] 127/54 L 136/61 Pulse Oximetry 93 96 98 Oxygen Delivery Me thod Room Air Room Air Room Air Oxygen Flow Rate 04/01/23 12:25 04/01/23 12:40 04/01/23 12:55 Temperature 96.9 F L Pulse Rate Pulse Rate [Left P ulse Oximeter] 67 65 64 Respiratory Rate 20 20 20 Blood Pressure Blood Pressure [Ri ght Arm] 156/56 H 170/64 H 165/55 H Pulse Oximetry 95 95 98 Oxygen Delivery Me thod Room Air Room Air Room Air Oxygen Flow Rate 04/01/23 12:58 04/01/23 13:25 04/01/23 13:55 Temperature 95.8 F L 96.9 F L Pulse Rate 79 Pulse Rate [Left P ulse Oximeter] 60 81 Respiratory Rate 20 20 20 Blood Pressure Blood Pressure [Ri ght Arm] 127/54 L 154/58 H 170/99 H Pulse Oximetry 96 96 95 Oxygen Delivery Me thod Room Air Room Air Room Air Oxygen Flow Rate 04/01/23 14:55 04/01/23 14:55 04/01/23 15:55 Temperature 97.9 F Pulse Rate Pulse Rate [Left P ulse Oximeter] 80 80 74 Respiratory Rate 20 20 20 Blood Pressure Blood Pressure [Ri ght Arm] 150/75 H 150/75 H 153/70 H Pulse Oximetry 96 96 94 Oxygen Delivery Me thod Room Air Room Air Room Air Oxygen Flow Rate 04/01/23 15:55 04/01/23 16:55 04/01/23 19:54 Temperature 97.9 F 98.2 F 97.8 F Pulse Rate Pulse Rate [Left P ulse Oximeter] 74 84 81 Respiratory Rate 20 20 20 Blood Pressure Blood Pressure [Ri ght Arm] 153/70 H 139/64 Pulse Oximetry 94 94 93 Oxygen Delivery Me thod Room Air Room Air Room Air Oxygen Flow Rate 04/01/23 22:57 04/01/23 22:59 04/02/23 03:25 Temperature 97.3 F L 97.3 F L Pulse Rate Pulse Rate [Left P ulse Oximeter] 93 93 84 Respiratory Rate 18 18 16 Blood Pressure Blood Pressure [Ri ght Arm] 152/93 H 164/74 H Pulse Oximetry 94 95 Oxygen Delivery Me thod Room Air Room Air Oxygen Flow Rate 2 04/02/23 07:00 Temperature 98.0 F Pulse Rate Pulse Rate [Left P ulse Oximeter] 75 Respiratory Rate 18 Blood Pressure Blood Pressure [Ri ght Arm] 141/62 H Pulse Oximetry 95 Oxygen Delivery Me thod Room Air Oxygen Flow Rate Labs Labs: Laboratory Results - last 24 hr 04/02/23 06:58 WBC 9.89 RBC 4.58 Hgb 13.5 Hct 39.8 MCV 87 MCH 30 MCHC 34 RDW Coeff of Rupa 12.2 Plt Count 253 Neut % (Auto) 80.0 H Lymph % (Auto) 10.8 L [place] % (Auto) 8.8 Eos % (Auto) 0.1 Baso % (Auto) 0.1 Neut # (Auto) 7.90 H Lymph # (Auto) 1.10 [place]os # (Auto) 0.90 Eos # (Auto) 0.01 Baso # (Auto) 0.01 Abs Immat Gran (auto) 0.02 Imm/Tot Granulo (auto) 0.2 INR 1.05 Sodium 139 Potassium 4.4 BUN 24 Creatinine 1.0 Estimated Creat Clear 36.53 Estimated GFR 60
--- NOTE | 2023-04-02 11:12 | P.DS_ITS ---
DS: Providers Provider Date Seen: 04/02/23 Date of admission: 04/01/23 07:32 Primary care physician: Ranjit Jennings MD Admitting Clinician: Manas Barrera MD Consults: 04/01/23 12:33 Consult to Occupational Therapy [CONS] Routine Comment: Reason(s) for OT Consult:: ADLs Prior to Discharge Any Restrictions?:: See Comment Comment: See nursing activity order for any restrictions. Consult to Physical Therapy [CONS] Routine Comment: Ambulate in the [facility] today. Reason(s) for PT Consult:: TKA TX Protocol POD#0 Any Restrictions?:: See Comment Comment: See nursing activity order for any restrictions. Consult to Physician [CONS] Routine Comment: Consulting Provider: Hospitalists Has provider been notified: No Consult to Irrigation Installation Specialist [CONS] Routine Comment: Reason for Consult:: Discharge Planning Needs Attending Physician on discharge: Manas Barrera MD Date of Discharge: 04/02/23 DS: Diagnosis Discharge Diagnosis (1) Osteoarthritis of left knee: Status: Acute Problem details: -POD#1 s/p L TKA -perioperative management including pain management and anticoagulation per Orthopedic surgery -encourage postoperative pulmonary hygiene, incentive spirometry -PT OT consults -medical social worker to assist with discharge planning/placement needs - discharging to [facility] today (2) Type 2 diabetes mellitus: Status: Chronic Problem details: -usual home dose Lantus 14 units. Ordered 7 units to start, will adjust as necessary -hold Trulicity. Continue glyburide -diabetic diet, glucose checks ACHS, insulin sliding scale (3) Elevated cholesterol: Status: Chronic Problem details: -continue statin (4) Hypertension: Status: Chronic Problem details: -continue home medications (5) Hypothyroid: Status: Chronic Problem details: -continue levothyroxine (6) MYRNA (obstructive sleep apnea): Status: Chronic Problem details: -use home CPAP DS: Summary Hospital Course Hospital Course: [age] year old femur past medical history significant for diabetes mellitus insulin dependent, hypertension, hyperlipidemia, hypothyroidism was admitted to the medical floor for postoperative care following left total knee arthroplasty. Course of care and details as noted above. Status at Discharge Overall status at discharge: patient is progressing back to baseline Time Spent with Patient Time attestation: Total time spent providing and/or coordinating discharge services: Time spent: Greater than 30 minutes Exam Narrative: Exam Narrative: PHYSICAL EXAM General: Pleasant, conversant, NAD Cardiovascular: RRR Pulmonary: No dyspnea Neurological: Alert, answering questions appropriately Skin: Warm, dry. Const: Vital Signs, click to edit/add: Vital Signs - 24 hr 04/01/23 11:20 04/01/23 11:25 04/01/23 11:30 Temperature 98.2 F Pulse Rate 76 76 71 Pulse Rate [Left P ulse Oximeter] Respiratory Rate 18 18 20 Blood Pressure 135/63 133/58 L 136/63 Blood Pressure [Ri ght Arm] Pulse Oximetry 94 95 94 Oxygen Delivery Me thod Room Air Oxygen Flow Rate 04/01/23 11:35 04/01/23 11:40 04/01/23 11:45 Temperature Pulse Rate 74 77 72 Pulse Rate [Left P ulse Oximeter] Respiratory Rate 18 15 16 Blood Pressure 152/74 H 153/74 H 158/66 H Blood Pressure [Ri ght Arm] Pulse Oximetry 93 93 93 Oxygen Delivery Me thod Oxygen Flow Rate 04/01/23 11:50 04/01/23 11:55 04/01/23 12:10 Temperature 97.5 F L 95.8 F L 96.3 F L Pulse Rate 70 Pulse Rate [Left P ulse Oximeter] 79 71 Respiratory Rate 16 20 20 Blood Pressure 162/63 H Blood Pressure [Ri ght Arm] 127/54 L 136/61 Pulse Oximetry 93 96 98 Oxygen Delivery Me thod Room Air Room Air Room Air Oxygen Flow Rate 04/01/23 12:25 04/01/23 12:40 04/01/23 12:55 Temperature 96.9 F L Pulse Rate Pulse Rate [Left P ulse Oximeter] 67 65 64 Respiratory Rate 20 20 20 Blood Pressure Blood Pressure [Ri ght Arm] 156/56 H 170/64 H 165/55 H Pulse Oximetry 95 95 98 Oxygen Delivery Me thod Room Air Room Air Room Air Oxygen Flow Rate 04/01/23 12:58 04/01/23 13:25 04/01/23 13:55 Temperature 95.8 F L 96.9 F L Pulse Rate 79 Pulse Rate [Left P ulse Oximeter] 60 81 Respiratory Rate 20 20 20 Blood Pressure Blood Pressure [Ri ght Arm] 127/54 L 154/58 H 170/99 H Pulse Oximetry 96 96 95 Oxygen Delivery Me thod Room Air Room Air Room Air Oxygen Flow Rate 04/01/23 14:55 04/01/23 14:55 04/01/23 15:55 Temperature 97.9 F Pulse Rate Pulse Rate [Left P ulse Oximeter] 80 80 74 Respiratory Rate 20 20 20 Blood Pressure Blood Pressure [Ri ght Arm] 150/75 H 150/75 H 153/70 H Pulse Oximetry 96 96 94 Oxygen Delivery Me thod Room Air Room Air Room Air Oxygen Flow Rate 04/01/23 15:55 04/01/23 16:55 04/01/23 19:54 Temperature 97.9 F 98.2 F 97.8 F Pulse Rate Pulse Rate [Left P ulse Oximeter] 74 84 81 Respiratory Rate 20 20 20 Blood Pressure Blood Pressure [Ri ght Arm] 153/70 H 139/64 Pulse Oximetry 94 94 93 Oxygen Delivery Me thod Room Air Room Air Room Air Oxygen Flow Rate 04/01/23 22:57 04/01/23 22:59 04/02/23 03:25 Temperature 97.3 F L 97.3 F L Pulse Rate Pulse Rate [Left P ulse Oximeter] 93 93 84 Respiratory Rate 18 18 16 Blood Pressure Blood Pressure [Ri ght Arm] 152/93 H 164/74 H Pulse Oximetry 94 95 Oxygen Delivery Me thod Room Air Room Air Oxygen Flow Rate 2 04/02/23 07:00 Temperature 98.0 F Pulse Rate Pulse Rate [Left P ulse Oximeter] 75 Respiratory Rate 18 Blood Pressure Blood Pressure [Ri ght Arm] 141/62 H Pulse Oximetry 95 Oxygen Delivery Me thod Room Air Oxygen Flow Rate DS: Data Data Completed and Pending Labs on day of discharge: Labs from last 24 hours 04/02/23 06:58 WBC 9.89 RBC 4.58 Hgb 13.5 Hct 39.8 MCV 87 MCH 30 MCHC 34 RDW Coeff of Rupa 12.2 Plt Count 253 Neut % (Auto) 80.0 H Lymph % (Auto) 10.8 L [place] % (Auto) 8.8 Eos % (Auto) 0.1 Baso % (Auto) 0.1 Neut # (Auto) 7.90 H Lymph # (Auto) 1.10 [place] # (Auto) 0.90 Eos # (Auto) 0.01 Baso # (Auto) 0.01 Abs Immat Gran (auto) 0.02 Imm/Tot Granulo (auto) 0.2 INR 1.05 Sodium 139 Potassium 4.4 BUN 24 Creatinine 1.0 Estimated Creat Clear 36.53 Estimated GFR 60 Discharge Plan Discharge Disposition: [facility] Date of Admission: 04/01/23 07:32 Attending Provider on Discharge: Manas Barrera Consulting Providers: Shannan Marmolejo; ,[place]; Jin Lemon; Montana Tovar; Myesha Snow; Padmini Wilkinson; Lucrecia Syed; Stevenson Sun; Mariah Barber; Mu Haro; Oni Nevarez; Rom Galarza; Steven Anders; Alejandro Velasquez; Henna Edwards; Hero uK; Williams Guevara; Ranjit Romero; Raudel Hernández; Agus Armando Primary Care Provider: Ranjit Jennings Medications: New aspirin [Aspirin Childrens] 81 mg tablet,chewable 81 mg PO BID 30 Days Qty: 60 0RF acetaminophen 500 mg capsule 500 - 1,000 mg PO Q6H MDD 4000mg per day PRN (Reason: pain) Qty: 100 0RF oxycodone 5 mg Tablet 2.5 - 5 mg PO Q4-6H MDD 6 tabs per day PRN (Reason: Pain) Qty: 42 0RF Rx Instructions: Minimize. Discontinue as soon as possible Continued desmopressin 0.1 mg tablet 0.1 mg PO QPM desvenlafaxine succinate 100 mg tablet extended release 24 hr 100 mg PO DAILY mirtazapine 15 mg tablet 15 mg PO QPM Trulicity 1.5 mg/0.5 mL pen injector 1.5 mg subcut .weekly polyethylene glycol 3350 17 gram/dose powder 17 g PO DAILY trazodone 100 mg tablet 300 mg PO HS PRN levothyroxine 75 mcg tablet 75 mcg PO DAILY nitrofurantoin monohyd/m-cryst 100 mg capsule 1 cap PO BID glyburide 5 mg tablet 5 mg PO DAILY fenofibrate 160 mg tablet 160 mg PO DAILY losartan 100 mg tablet 100 mg PO DAILY docusate sodium 100 mg capsule 100 mg PO BID potassium chloride 20 mEq tablet,ER particles/crystals 20 meq PO BID atorvastatin 40 mg tablet 40 mg PO DAILY Myrbetriq 50 mg tablet extended release 24 hr 50 mg PO DAILY sennosides-docusate sodium [Stimulant Laxative Plus] 8.6-50 mg tablet PO ipratropium bromide 0.02 % solution inhalation Patient Comments: [NO ORIGINAL SIG] albuterol sulfate 2.5 mg /3 mL (0.083 %) solution for nebulization 2.5 mg continuous nebulization Q6H PRN Patient Comments: [NO ORIGINAL SIG] insulin glargine [Lantus Solostar U-100 Insulin] 100 unit/mL (3 mL) insulin pen 14 unit subcut HS omeprazole 40 mg capsule,delayed release(DR/EC) 40 mg PO DAILY cetirizine 10 mg tablet 10 mg PO DAILY aripiprazole 15 mg tablet 15 mg PO DAILY Held aspirin 81 mg tablet,delayed release (DR/EC) 81 mg PO DAILY Hold Instructions: Resume on 05/02/23. Discontinued ibuprofen 600 mg tablet 600 mg PO Q6H PRN Discharge Orders: Discharge Order (Routine); Ordered 04/02/23 Ordered By: Bonny Adames Consulting provider completed their portion of the discharge: Yes Activity Level: Activity as Tolerated and No strenuous activity Activity Detail: PT and OT daily while at [facility], then PT as outpatient. Discharge Diet: Diabetic Follow Up Appointments: [facility] [place] [Outside] (Patient being discharged to [facility]. ) Bonny Adames PA-C [Physician Supervisor Opening And Picking] - 04/09/23 1:00 pm ([facility] for follow-up.) Ranjit Jennings MD [Primary Care Provider] - 04/16/23 (post hospital follow up) Forms: [facility] Info Instructions Wound Care: per Orthopedic surgery Admit to: SNF Discharge Potential: Good Length of Stay: <30 days Can use facility standing orders?: Yes Code Status: Full Code TEDs: Bilateral Knee Rehab Potential: Good Therapy: Physical Therapy and Occupational Therapy Therapy Orders: Evaluate and Treat Therapy Orders Additional Information: post op L TKA Oxygen: No Urinary Catheter: No Glucose Checks: ACHS Orders are good >30 days: No Signature: GARRY Saunders, PA-[facility] Hospitalist
--- NOTE | 2023-04-02 11:37 | PC.SOCIAL ---
Discharge planning- Phone call from Ynes in admissions at the [facility]. [facility] can accept pt for admission for today. Met with pt and provided update. Pt's friend Miracle will provide transportation. Informed pt that this worker will call Miracle for transportation today. Phone call to pt's friend Miracle at [phone]. Miracle will come to [facility] at 12:00 pm today to provide transportation to the [facility]. Provided update to charge nurse and MD. Completed preadmission screening. Confirmation #[id number]. Provided copy of PAS to Ynes at the [facility] with an update on transport time. Social work will follow up as needed.
--- NOTE | 2023-04-02 11:49 | PC.NURSE ---
Discharge to SNF: Pt is A&Ox3. Reports mild pain in L knee 05/20. The patient refused scheduled Tylenol and wanted oxycodone instead. PRN oxy was given with adequate relief. The patient reported that she did not want to take the CYRO cuff with her. I educated her on the importance of elevation and icing her L knee. I called Earl to give nurse to nurse but no one answered so I left a message to call back. Packet was sent with patient to give to Earl. IV was removed. JOSE HILL BSN
== END 2023-04-02 12:00 | DRG 470 ==
PROVIDERS: Admitting Provider Orthopaedic Surgery; PCP Family Medicine; Visit Provider Orthopaedic Surgery
PROC: 0SRD0J9 Replacement of Left Knee Joint with Synthetic Substitute, Cemented, Open Approach (ICD-10-PCS; CPT 27447; principal; 2023-04-01 09:30)
DX: M17.12 Unilateral primary osteoarthritis, left knee (principal); G47.33 Obstructive sleep apnea (adult) (pediatric); Z99.89 Dependence on other enabling machines and devices; K21.9 Gastro-esophageal reflux disease without esophagitis; E03.9 Hypothyroidism, unspecified; Z79.85 Long-term (current) use of injectable non-insulin antidiabetic drugs; Z79.4 Long term (current) use of insulin; E78.00 Pure hypercholesterolemia, unspecified; G89.18 Other acute postprocedural pain; Z96.619 Presence of unspecified artificial shoulder joint; Z98.890 Other specified postprocedural states; I12.9 Hypertensive chronic kidney disease with stage 1 through stage 4 chronic kidney disease, or unspecified chronic kidney disease; E11.22 Type 2 diabetes mellitus with diabetic chronic kidney disease; N18.30 Chronic kidney disease, stage 3 unspecified
CPT/HCPCS: 01402; 36415; 64447; 73560; 76942; 82565; 82962; 84132; 84295; 84520; 85025; 85610; 97110; 97116; 97161; 97165; 97535; 99100; A9270; C1776; J0690; J1100; J2250; J2704; J2795; J3010; J7050; J7120